=== PATIENT | male | born 1965 | race Caucasian/White ===

== ENCOUNTER 2019-06-23 11:12 | Outpatient (CLI) | payer MEDICARE, SELFPAY ==
[2019-06-23 11:43] LABS: Basophils Percent Auto 0.3 % (0.2-1.2); Eosinophils Absolute Auto 0.2 K/mm3 (0-0.3); Eosinophils Percent Auto 1.7 % (0-4.4); Hematocrit 46.2 % (42.0-52.0); Hemoglobin 15.9 g/dL (14.0-18.0); Immature Granulocyte Absolute 0.08 K/mm3 (0.00-0.031); Immature Granulocyte Percent A 0.7 % (0-0.5); Lymphocytes Absolute Auto 3.41 K/mm3 (0.9-3.2); Lymphocytes Percent Auto 29.7 % (18.3-44.2); Mean Corpuscular HGB Conc 34.4 g/dl (32-36); Mean Corpuscular Volume 90.1 fl (80-100); Mean Platelet Volume 10.2 fl (7.4-10.4); Monocytes Absolute Auto 0.6 K/mm3 (0.1-0.6); Monocytes Percent Auto 5.6 % (2.6-8.5); Neutrophils Absolute Auto 7.1 K/mm3 (1.3-6.7); Platelet Count Result 360 k/mm3 (150-375); Red Blood Count 5.13 M/mm3 (4.6-6.20); Red Cell Distribution Width 11.2 % (11.5-14.5); White Blood Count 11.5 K/mm3 (4.5-10.0)
[2019-06-23 11:52] LABS: Add Urine Microscopic? YES; Appearance Urine Cloudy (Clear); Bilirubin Urine 1+ (Negative); Blood Urine Negative (Negative); Color Urine Yellow (Yellow); Glucose Urine UA 3+ mg/dL (Negative); Hyaline Casts Urine 30-49 /lpf; Ketones Urine Trace mg/dL (Negative); Leukocyte Esterase Ur Trace LEU/UL (NEGATIVE); Mucus Urine Rare /lpf; Nitrate Urine Negative (Negative); Protein Urine 2+ mg/dL (Negative); Squamous Epithelial Cell Urine Few /hpf (Few)
[2019-06-23 11:56] LABS: Specific Grav Ur 1.032 (1.001-1.035)
[2019-06-23 11:58] LABS: Alanine Aminotransferase 20 U/L (4-50); Albumin Level 4.5 g/dL (3.5-5.1); Alkaline Phosphatase 105 U/L (38-126); Aspartate Amino Transferase 21 U/L (17-59); Bilirubin,Total 0.5 mg/dL (0.2-1.3); Blood Urea Nitrogen 26 mg/dL (9-20); Calcium 9.7 mg/dL (8.4-10.2); Carbon Dioxide 28 mmol/L (22-30); Chloride 96 mmol/L (98-107); Cholesterol 184 mg/dL (0-200); Estimated Glomerular Filt Rate > 60; Glucose 368 mg/dL (75-110); HDL Direct 27 mg/dL; Potassium 4.7 mmol/L (3.4-5.0); Sodium 138 mmol/L (137-145); Triglycerides 153 mg/dL (<150)
[2019-06-23 12:09] LABS: LDL Cholesterol Direct 137 mg/dL
[2019-06-23 12:27] LABS: Prostate Specific Antigen 1.8 ng/mL (< OR = 4.0)
[2019-06-23 13:12] LABS: Hemoglobin A1C 9.2 % (<5.7)
[2019-06-23 13:25] LABS: Vitamin D 25 Hydroxy 40.8 ng/mL
[2019-06-26 21:04] LABS: Vitamin D 1,25 (OH)2 Total 63 pg/mL (18-72); Vitamin D2 1,25 (OH)2 <8 pg/mL; Vitamin D3 1,25 (OH)2 63 pg/mL
== END 2019-06-23 11:13 | disposition home or self-care (01) ==
PROVIDERS: PCP Family Medicine; Referring Provider Physician Assistant; Visit Provider Physician Assistant
DX: Z12.5 Encounter for screening for malignant neoplasm of prostate (principal); E55.9 Vitamin D deficiency, unspecified; E11.65 Type 2 diabetes mellitus with hyperglycemia; Z79.4 Long term (current) use of insulin; I11.9 Hypertensive heart disease without heart failure; I25.2 Old myocardial infarction; I25.10 Atherosclerotic heart disease of native coronary artery without angina pectoris
CPT/HCPCS: 36415; 80053; 80061; 81001; 82306; 82652; 83036; 84153; 84443; 85025; G0103

== ENCOUNTER → 2020-08-12 06:51 | Outpatient (CLI) | payer MEDICARE, SELFPAY ==
[2020-08-12 18:11] LABS: SARS-CoV-2 RNA PCR Negative
== END ==
PROVIDERS: Nurse Practitioner Family; PCP Family Medicine; Visit Provider Family Medicine
DX: R05 Cough (principal); Z20.822 Contact with and (suspected) exposure to COVID-19
CPT/HCPCS: C9803; U0003; U0005

== ENCOUNTER 2021-07-21 10:43 | Outpatient (CLI) | payer MEDICARE, SELFPAY ==
[2021-07-21 11:23] LABS: Basophils Percent Auto 0.4 % (0.2-1.2); Eosinophils Absolute Auto 0.2 K/mm3 (0-0.3); Eosinophils Percent Auto 2.3 % (0-4.4); Hematocrit 38.4 % (42.0-52.0); Immature Granulocyte Absolute 0.03 K/mm3 (0.00-0.031); Immature Granulocyte Percent A 0.3 % (0-0.5); Lymphocytes Absolute Auto 3.28 K/mm3 (0.9-3.2); Lymphocytes Percent Auto 35.2 % (18.3-44.2); Mean Corpuscular HGB Conc 33.9 g/dl (32-36); Mean Corpuscular Hemoglobin 30.7 pg (26-34); Mean Corpuscular Volume 90.6 fl (80-100); Monocytes Absolute Auto 0.6 K/mm3 (0.1-0.6); Monocytes Percent Auto 5.9 % (2.6-8.5); Neutrophils Absolute Auto 5.2 K/mm3 (1.3-6.7); Neutrophils Percent Auto 55.9 % (45.5-73.1); Platelet Count Result 375 k/mm3 (150-375); Red Blood Count 4.24 M/mm3 (4.6-6.20); Red Cell Distribution Width 12.4 % (11.5-14.5); White Blood Count 9.3 K/mm3 (4.5-10.0)
[2021-07-21 11:38] LABS: Add Urine Microscopic? YES; Appearance Urine Cloudy (Clear); Bilirubin Urine Negative (Negative); Blood Urine Negative (Negative); Color Urine Yellow (Yellow); Glucose Urine UA 3+ mg/dL (Negative); Ketones Urine Negative (Negative); Leukocyte Esterase Ur 2+ LEU/UL (NEGATIVE); Mucus Urine Rare /lpf; Nitrate Urine Negative (Negative); Protein Urine Negative (Negative); Specific Grav Ur 1.018 (1.001-1.035); Squamous Epithelial Cell Urine Moderate /hpf (Few); Urobilinogen Urine Negative mg/dL (<2.0); WBC Urine 51-75 /hpf (0-3)
[2021-07-21 12:50] LABS: Hemoglobin A1C 10.8 % (<5.7)
[2021-07-21 12:53] LABS: Alanine Aminotransferase 20 U/L (4-50); Albumin Level 4.5 g/dL (3.5-5.1); Alkaline Phosphatase 84 U/L (38-126); Anion Gap 11 mmol/L (8-16); Aspartate Amino Transferase 24 U/L (17-59); Bilirubin,Total 0.3 mg/dL (0.2-1.3); Blood Urea Nitrogen 20 mg/dL (9-20); Calcium 9.9 mg/dL (8.4-10.2); Carbon Dioxide 28 mmol/L (22-30); Chloride 101 mmol/L (98-107); Cholesterol 149 mg/dL (0-200); Estimated Glomerular Filt Rate > 60; Glucose 156 mg/dL (65-110); HDL Direct 34 mg/dL; Potassium 4.8 mmol/L (3.4-5.0); Sodium 140 mmol/L (137-145); Triglycerides 115 mg/dL (<150)
[2021-07-21 13:05] LABS: LDL Cholesterol Direct 90 mg/dL
[2021-07-21 13:36] LABS: Prostate Specific Antigen 1.9 ng/mL (< OR = 4.0)
== END 2021-07-21 10:44 | disposition home or self-care (01) ==
PROVIDERS: PCP Family Medicine; Visit Provider Nurse Practitioner Family
DX: E11.65 Type 2 diabetes mellitus with hyperglycemia (principal); F31.9 Bipolar disorder, unspecified; I11.9 Hypertensive heart disease without heart failure; Z12.5 Encounter for screening for malignant neoplasm of prostate; Z79.4 Long term (current) use of insulin; R31.9 Hematuria, unspecified; E55.9 Vitamin D deficiency, unspecified; I25.10 Atherosclerotic heart disease of native coronary artery without angina pectoris; I25.2 Old myocardial infarction
CPT/HCPCS: 36415; 80053; 80061; 81001; 83036; 84153; 84443; 85025; G0103

== ENCOUNTER → 2021-08-26 00:04 | Outpatient (CLI) | payer MEDICARE, SELFPAY ==
[2021-08-26 16:46] LABS: SARS-CoV-2 RNA PCR Negative
== END ==
PROVIDERS: PCP Family Medicine; Visit Provider Internal Medicine Gastroenterology
DX: Z01.812 Encounter for preprocedural laboratory examination (principal); Z20.822 Contact with and (suspected) exposure to COVID-19
CPT/HCPCS: C9803; U0003; U0005

== ENCOUNTER 2022-10-19 12:40 | Outpatient (CLI) | payer MEDICARE, SELFPAY ==
--- NOTE | 2022-10-19 12:51 | ECHO_ITS ---
Patient Info Name: Antonio Solis Age: 56 years : 1965 Gender: Male Ht: 69 in Wt: 208 lbs BSA: 2.17 m2 BP: 137 / 74 mmHg Technical Quality: Fair Exam Date: 10/19/2022 1:00 PM Exam Location: [facility] Patient Status: Outpatient Admit Date: 10/19/2022 Staff Ordering Physician: Edwin Blanchard DO Digital Designer: Edyta Fan RDCS Attending Provider: Edwin Blanchard DO Referring Physician: Santo JIMENEZ; Exam Type: CA echo doppler color flow Study Info Indications I25.10 - Atherosclerotic heart disease of [place] coronary artery without angina pectoris Complete two-dimensional, color flow and Doppler transthoracic echocardiogram is performed. Summary 1. Complete two-dimensional, color flow and Doppler transthoracic echocardiogram is performed. 2. Left ventricular chamber dimension is mildly enlarged. 3. Left ventricular systolic function is normal, estimated at 55-60%. 4. The left ventricular diastolic function is grade I diastolic dysfunction. 5. E/e' 7 is not elevated. 6. Global longitudinal strain is abnormal at -15.1%. 7. Linear artifact in right ventricle suggestive of catheter(s), pacemaker lead(s), or ICD lead(s). 8. Linear artifact in the right atrium suggestive of catheter(s), pacemaker lead(s), or ICD lead(s). 9. No pulmonary hypertension, estimated pulmonary arterial systolic pressure is 28 mmHg. Left Ventricle E/e' 7 is not elevated. Global longitudinal strain is abnormal at -15.1%. Left ventricular chamber dimension is mildly enlarged. Left ventricular systolic function is normal, estimated at 55-60%. The left ventricular diastolic function is grade I diastolic dysfunction. Right Ventricle Right ventricular systolic function is normal and with normal TAPSE 2.6 cm. Linear artifact in right ventricle suggestive of catheter(s), pacemaker lead(s), or ICD lead(s). Right ventricular chamber dimension is normal. Left Atria Left atrial chamber dimension is normal. Right Atria Linear artifact in the right atrium suggestive of catheter(s), pacemaker lead(s), or ICD lead(s). Right atrial chamber dimension is normal. Aortic Valve The aortic valve is trileaflet. There is no aortic valve stenosis. There is no aortic valve regurgitation. Pulmonic Valve There is no pulmonic regurgitation. Mitral Valve There is no mitral valve stenosis. There is no mitral valve regurgitation. Tricuspid Valve There is no tricuspid valve regurgitation. No pulmonary hypertension, estimated pulmonary arterial systolic pressure is 28 mmHg. Pericardium/Pleural There is no pericardial effusion. Inferior Vena Cava Normal inferior vena cava with >50% collapse upon inspiration consistent with normal right atrial pressure, 5 mmHg. Aorta The aortic root size at the sinus of Valsalva is normal. Left Ventricular Outflow Tract Name Value Normal LVOT 2D LVOT Diameter 2.0 cm LVOT Doppler LVOT Peak Velocity 104 cm/s LVOT Peak Gradient 4 mmHg LVOT Mean Gradient 3 mmHg LVOT VTI 21 cm
[2022-10-19 13:46] LABS: Estimated Glomerular Filt Rate > 60
== END 2022-10-19 12:41 | disposition home or self-care (01) ==
PROVIDERS: PCP Family Medicine; Visit Provider Internal Medicine Cardiovascular Disease
DX: I25.10 Atherosclerotic heart disease of native coronary artery without angina pectoris (principal); I51.9 Heart disease, unspecified
CPT/HCPCS: 93306

== ENCOUNTER 2022-10-19 12:45 | Outpatient (CLI) | payer MEDICARE, SELFPAY ==
--- NOTE | ~2022-10-19 | CT_ITS ---
EXAMINATION: CTA neck DATE: 10/19/2022 14:01 INDICATION: Left hand paresthesias. TECHNIQUE: Computed tomographic angiography (CTA) of the neck was performed with 100 mL Omnipaque-350 intravenous contrast. Automated exposure control and iterative reconstruction technique were employe d. The dose-length product was 998.80 mGy-cm. Maximum intensity projection 3D-reconstructions were cr eated by the technologist on a separate workstation. COMPARISON: None. FINDINGS: Calcified left hilar lymph nodes are consistent with old granulomatous disease. There is a left chest pacer. There is a 2.4 cm subcutaneous mass in left posterior superior thorax, likely a agustin aceous cyst. There is cerumen in left external auditory canal. There is a right mastoid effusion. The re is extensive dental disease. There is severe cervical spondylosis. Right vertebral artery is domin ant. There is total occlusion of proximal left subclavian artery with reconstitution at the origin of thyrocervical trunk. There is total occlusion of proximal left vertebral artery with reconstitution in the mid cervical spine. There is moderate stenosis of intracranial left vertebral artery. Left ihsan tebral artery ends in posterior inferior cerebellar artery. There is plaque in the proximal internal carotid arteries. There is 26% stenosis of the proximal right internal carotid artery relative to nor mal distal artery lumen diameter (NASCET criteria). There is 37% stenosis of the proximal left internal consultant al carotid artery relative to normal distal artery lumen diameter. IMPRESSION: 1. 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 2. Total occlusion of proximal left vertebral artery with reconstitution in the mid cervical spine. M oderate stenosis of intracranial left vertebral artery, which ends in posterior inferior cerebellar a rtery. 3. 26% stenosis of the proximal right internal carotid artery relative to normal distal artery lumen diameter (NASCET criteria). 4. 37% stenosis of the proximal left internal carotid artery relative to normal distal artery lumen d iameter. 5. Extensive dental disease. 6. Severe cervical spondylosis. Reviewed, dictated and finalized at location A. IMPRESSION: 1. 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 2. Total occlusion of proximal left vertebral artery with reconstitution in the mid cervical spine. Moderate stenosis of intracranial left vertebral artery, w hich ends in posterior inferior cerebellar artery. 3. 26% stenosis of the proximal right internal carotid artery relative to kelsy l distal artery lumen diameter (NASCET criteria). 4. 37% stenosis of the proximal left internal carotid artery relative to normal distal artery lumen diameter. 5. Extensive dental disease. 6. Severe cervical spondylosis.
== END 2022-10-19 12:46 | disposition home or self-care (01) ==
PROVIDERS: PCP Family Medicine; Visit Provider Internal Medicine Cardiovascular Disease
DX: R20.2 Paresthesia of skin (principal); I70.92 Chronic total occlusion of artery of the extremities; I65.23 Occlusion and stenosis of bilateral carotid arteries; K08.9 Disorder of teeth and supporting structures, unspecified; M47.812 Spondylosis without myelopathy or radiculopathy, cervical region
CPT/HCPCS: 70498; 93306; Q9967

== ENCOUNTER 2022-10-25 13:37 | Outpatient (CLI) | payer MEDICARE, SELFPAY ==
[2022-10-25 15:48] LABS: Hemoglobin A1C 9.3 % (<5.7)
== END 2022-10-25 13:38 | disposition home or self-care (01) ==
PROVIDERS: PCP Family Medicine; Visit Provider Family Medicine
DX: E11.65 Type 2 diabetes mellitus with hyperglycemia (principal); Z79.4 Long term (current) use of insulin; I11.9 Hypertensive heart disease without heart failure; I25.10 Atherosclerotic heart disease of native coronary artery without angina pectoris; J44.9 Chronic obstructive pulmonary disease, unspecified; R33.9 Retention of urine, unspecified
CPT/HCPCS: 36415; 83036

== ENCOUNTER 2024-05-01 12:29 | Emergency (ER) | payer MEDICARE, SELFPAY ==
[2024-05-01] VITALS (36 sets, daily range): BP systolic 127–201; BP diastolic 82–106; PULSE 75–90; RESP 15–25; TEMP 36.8; O2SAT 93–100
--- NOTE | ~2024-05-01 | XR_ITS ---
EXAMINATION: XR chest 2V DATE: 05/01/2024 12:53 INDICATION: Left chest pain. TECHNIQUE: Frontal and lateral views of the chest were obtained. COMPARISON: Chest 2 views 08/16/2017 FINDINGS: There is no pneumonia, pleural effusion, or pneumothorax. The heart size is normal. There i s a left chest wall pacer with leads in the right atrium and right ventricle. IMPRESSION: 1. No acute cardiopulmonary disease. Reviewed, dictated and finalized at location A.
--- NOTE | ~2024-05-01 | CT_ITS ---
CTA chest PE protocol Ordering provider: Summer Bauman MD History: 58 years Male with . cp w/ elev dimer . Comparison: None. Technique: CT angiogram chest was performed following timed intravenous injection of contrast. Thin s lice axial images and reformatted coronal images were obtained. Three dimensional reformatted images of the chest were also obtained using a [employer] workstation. . Automated exposure control and iterati ve reconstruction technique were employed. The dose-length product was 609.96 mGy-cm. 500 mL Omnipaqu e 350 was given IV. Findings: PULMONARY ARTERIES: No pulmonary embolus. VISUALIZED THORACIC INLET: Normal. Left bipolar pacemaker is noted. MEDIASTINUM: Aorta/coronary arteries: Mild atheromatous disease. Heart/other: The heart is not enlarged. Lymph nodes: No mediastinal or hilar adenopathy. LUNGS: No pulmonary nodules or masses. No infiltrates or effusions. No pneumothorax. VISUALIZED UPPER ABDOMEN: Severe narrowing of the origin of the celiac artery. Atherosclerotic change s also seen in the proximal superior mesenteric artery. Otherwise, the visualized upper abdomen is no rmal. MUSCULOSKELETAL: Soft tissues: The superficial soft tissues are normal. Bones: Age appropriate degenerative changes of the spine. IMPRESSION: 1. No pulmonary embolism. 2. No acute cardiopulmonary pathology. 3. Narrowing at the origin of the celiac artery and atherosclerotic changes in the superior mesenter ic artery. Further evaluation advised. Reviewed, dictated and finalized at location A. IMPRESSION: 1. No pulmonary embolism. 2. No acute cardiopulmonary pathology. 3. Narrowing at the origin of the celiac artery and atherosclerotic changes in the superior mesenteric artery. Further evaluation advised.
--- NOTE | 2024-05-01 12:31 | ECG_ITS ---
Test Date: 2024-05-01 12:35:55 Measurements Intervals [place] Rate: 90 P: 64 IN: 168 QRS: 57 QRSD: 86 T: 71 QT: 344 QTc: 422 Interpretive Statements SINUS RHYTHM No previous ECG available for comparison Electronically Signed On 05-01-2024 15:38:35 CDT by Belle Yang M.D.
[2024-05-01 12:47] LABS: Basophils Absolute Auto 0.1 K/mm3 (0.0-0.1); Basophils Percent Auto 0.7 % (0.2-1.2); Eosinophils Absolute Auto 0.3 K/mm3 (0-0.3); Eosinophils Percent Auto 2.4 % (0-4.4); Hematocrit 46.2 % (42.0-52.0); Hemoglobin 15.5 g/dL (14.0-18.0); Immature Granulocyte Absolute 0.02 K/mm3 (0.00-0.031); Immature Granulocyte Percent A 0.2 % (0-0.5); Lymphocytes Absolute Auto 2.68 K/mm3 (0.9-3.2); Mean Corpuscular HGB Conc 33.5 g/dl (32-36); Mean Corpuscular Volume 92.4 fl (80-100); Mean Platelet Volume 9.6 fl (7.4-10.4); Monocytes Absolute Auto 0.5 K/mm3 (0.1-0.6); Monocytes Percent Auto 4.7 % (2.6-8.5); Neutrophils Absolute Auto 6.8 K/mm3 (1.3-6.7); Platelet Count Result 361 k/mm3 (150-375); Red Cell Distribution Width 12.2 % (11.5-14.5); White Blood Count 10.3 K/mm3 (4.5-10.0)
[2024-05-01 13:01] LABS: INR 0.9; Partial Thromboplastin Time 28.2 Seconds (22.3-36.8); Prothrombin Time 12.4 Seconds (11.1-14.7)
[2024-05-01 13:06] LABS: Alanine Aminotransferase 35 U/L (6-50); Albumin Level 4.6 g/dL (3.5-5.1); Alkaline Phosphatase 96 U/L (38-126); Anion Gap 10 mmol/L (4-12); Aspartate Amino Transferase 36 U/L (17-59); Bilirubin,Total 0.3 mg/dL (0.2-1.3); Blood Urea Nitrogen 14 mg/dL (9-20); Calcium 9.6 mg/dL (8.4-10.2); Carbon Dioxide 29 mmol/L (22-30); Chloride 102 mmol/L (98-107); Estimated CRCL calculation 125 ml/min; Estimated Glomerular Filt Rate > 60; Glucose 195 mg/dL (65-110); Lipase 60 U/L (23-300); Potassium 4.6 mmol/L (3.4-5.0); Sodium 141 mmol/L (137-145)
[2024-05-01 13:18] LABS: Troponin I < 0.012 ng/mL (0.000-0.034)
--- NOTE | 2024-05-01 13:54 | PC.NURSE ---
patient states he took 80 mg aspirin this morning
[2024-05-01] MEDS: ASPIRIN 81 MG CHEWABLE TABLET 324 MG PO (14:14)
--- NOTE | 2024-05-01 14:50 | ED.CHESTPAIN ---
HPI - Chest Pain General Chief Complaint: Chest Pain Stated Complaint: chest pain x3d Time Seen by Provider: 05/01/24 14:34 Source: patient Mode of arrival: ambulatory Limitations: no limitations History of Present Illness HPI narrative: Patient presents with intermittent left sided chest pain of 3 days duration. He states he has a known history of blockages but is not a surgical candidate/no intervention has been performed given his diabetes mellitus. He had a cardiac catheterization approximately 1 year ago. 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 Subjective lower extremity edema. His symptoms are episodic, primarily occuring with exercise/heavy lifting. He states he was warned about this and advised to not do this but it's all I know. History of VT in 2012 w/o stent placement. He experiences constant shortness of breath attributed to his smoking (1 PPD) as well as the fact that he has been out of his nitroglycerin which he usually uses for chest pain. He is also out of his atorvastatin. Patient has an upcoming appointment with his PCP Dr Almazan on 05/07. Episodes last 3-4 minutes and are occasionally associated with diaphoresis. No nausea/vomting. Describes it as a pulling sensation. He had a pacemaker placed by Dr Queen, statement clerks supervisor in [place]. Has been occasionally dizzy with episodes. Takes 81mg aspiring but no other anticoagulation. No cough, fever. No prior TIA/CVA. Hx of HTN and HLD. Related Data Allergies Allergy/AdvReac Type Severity Reaction Status Date / Time Penicillins Allergy Unknown Swelling Verified 11/07/22 13:15 [facility] Past Medical History Medical History CAD (coronary artery disease) COPD (chronic obstructive pulmonary disease) Hyperlipidemia Hypertension Insulin dependent diabetes mellitus Old VT (myocardial infarction) 2012; no stents Pacemaker Dr Queen, [place] PAD (peripheral artery disease) occluded L subclavian, L vertebral both w/ collateral flow Renal lithiasis Smoking Tobacco use Family History Family History Sibling Diabetes mellitus Mother Family history of cardiovascular disease Social History Social History Smoking packs per day: 1.5 Smoking cigarettes per day: 30.0 Years smoked: 51 Smoking pack-years: 76.50 Smoking status: Current every day smoker Tobacco type: cigarettes Second hand tobacco smoke exposure: Yes Alcohol intake: former Drinks per week: 6 Substance use: never Substance use type: does not use Living arrangements: alone Occupation/Education: unemployed Gender identity (if verbalized by the patient): Male Spiritual care concerns: No Exam Narrative: GENERAL: Well-nourished, and in no acute distress. HEAD: Normocephalic, atraumatic. EYES: Non injected, non icteric ENT: Nares clear, no rhinorrhea or epistaxis. NECK: Supple. CHEST: Speaking in full sentences. No respiratory distress. Lungs clear. HEART: Regular rate and rhythm. . ABDOMEN: Soft, nondistended. EXTREMITIES: Normal range of motion. No lower extremity edema bilaterally on exam. SKIN: Warm, dry, no rash. NEURO: No focal deficits. Alert and oriented x3. PSYCH: Normal mood and affect. Course Vital Signs Vital signs: Vital Signs Temperature 98.2 F 05/01/24 12:41 Pulse Rate 89 05/01/24 12:41 Respiratory Rate 20 05/01/24 12:41 Blood Pressure 128/88 05/01/24 12:41 Pulse Oximetry 100 05/01/24 12:41 Oxygen Delivery Room Air 05/01/24 12:41 Temperature 98.2 F 05/01/24 19:27 Pulse Rate 86 05/01/24 19:27 Respiratory Rate 19 05/01/24 19:27 Blood Pressure 147/82 H 05/01/24 19:27 Pulse Oximetry 95 05/01/24 19:27 Oxygen Delivery Room Air 05/01/24 13:52 MDM - Chest Pain MDM Narrative Medical decision making narrative: Patient presents with intermittent episodic left sided chest pain of 3 days duration, occurring with exercise/heavy lifting. Cardiac history. In the ED, he is afebrile with VS within normal limits. HEART SCORE History 2 highly suspicious 1 moderately suspicious 0 slightly suspicious History score [address] depression/elevation not due to LBBB, LVH, or digoxin [address] depression but LBBB, LVH, nonspecific repolarization changes 0 normal ECG score 0 Age 2 >/= 65 1 45-64 0 <45 Age score 1 Risk factors (HTN, hypercholesterolemia, DM, obesity with BMI >30, current smoker or cessation </=3mo), positive fam hx with parent or sibling with CVD before age 65, atherosclerotic disease (prior VT, PCI/CABG, CVA/TIA, or peripheral arterial disease) 2 >/= 3 risk factors or history of atherosclerotic dz 1 - 1-2 risk factors 0 no known risk factors Risk factor score 2 Initial Troponin 2 >3 times normal limit 1 1-3 times normal limit 0 less than or equal to normal limit Troponin score 0 Total HEART Score 3. Patient's symptoms sound like stable angina. Patient's D-dimer is elevated in cannot be age adjusted. Will proceed with CT imaging. Study is ordered but patient is initially adamant he would like to leave given he has been waiting for so long. Discussed with patient and offered to give patient insulin and food. Explained because the delay and the rationale for the order for the next phase of his workup. Discharge and AMA paperwork drawn up given patient initially states he would still like to proceed with leaving. However, I am then informed that patient had gone to the CT scan. Negative for PE. Discharged in stable condition and advised to keep his follow up appointment on 05/[address] Almazan. Provided short course of a refill of his atorvastain and NTG SL. Differential Diagnosis Differential diagnosis: Likely pneumothorax, stable angina, unstable angina pectoris, atypical chest pain, st elevation myocardial infarction, chest pain, biliary colic and other (COPD exacerbation; musculoskeletal; PE; pneumonia) Lab Data Attestation: I reviewed the patient's lab results. Lab results narrative: mild leukocytosis Hyperglycemia without anion gap acidosis 05/01/24 12:39 05/01/24 12:39 Labs: Lab Results 05/01/24 05/01/24 Range/Units 12:39 15:38 WBC 10.3 H (4.5-10.0) K/mm3 RBC 5.00 (4.6-6.20) M/mm3 Hgb 15.5 (14.0-18.0) g/dL Hct 46.2 (42.0-52.0) % MCV 92.4 (80-100) fl MCH 31.0 (26-34) pg MCHC 33.5 (32-36) g/dl RDW 12.2 (11.5-14.5) % Plt Count 361 (150-375) k/mm3 MPV 9.6 (7.4-10.4) fl Immature Gran % (Auto) 0.2 (0-0.5) % Neut % (Auto) 66.0 (45.5-73.1) % Lymph % (Auto) 26.0 (18.3-44.2) % [place] % (Auto) 4.7 (2.6-8.5) % Eos % (Auto) 2.4 (0-4.4) % Baso % (Auto) 0.7 (0.2-1.2) % Lymph # (Auto) 2.68 (0.9-3.2) K/mm3 [place] # (Auto) 0.5 (0.1-0.6) K/mm3 Eos # (Auto) 0.3 (0-0.3) K/mm3 Baso # (Auto) 0.1 (0.0-0.1) K/mm3 Abs Immat Gran (auto) 0.02 (0.00-0.031) K/mm3 Absolute Neuts (auto) 6.8 H (1.3-6.7) K/mm3 Absolute Nucleated RBC 0.000 (0.0-0.012) K/mm3 Nucleated RBC % 0.0 (0.0-0.2) % PT 12.4 (11.1-14.7) Seconds INR 0.9 APTT 28.2 (22.3-36.8) Seconds D-Dimer 1.79 H (<0.48) ug/mL Sodium 141 (137-145) mmol/L Potassium 4.6 (3.4-5.0) mmol/L Chloride 102 (98-107) mmol/L Carbon Dioxide 29 (22-30) mmol/L Anion Gap 10 (4-12) mmol/L BUN 14 D (9-20) mg/dL Creatinine 0.60 L (0.7-1.3) mg/dL Estim Creat Clear Calc 125 ml/min Estimated GFR > 60 (59 - ) Glucose 195 H (65-110) mg/dL Calcium 9.6 (8.4-10.2) mg/dL Total Bilirubin 0.3 (0.2-1.3) mg/dL AST 36 (17-59) U/L ALT 35 (6-50) U/L Alkaline Phosphatase 96 (38-126) U/L Troponin I < 0.012 < 0.012 (0.000-0.034) ng/mL NT-Pro-B Natriuret Pep 97 (19.9-100) pg/mL Total Protein 9.0 H (6.3-8.2) g/dL Albumin 4.6 (3.5-5.1) g/dL Lipase 60 (23-300) U/L Imaging Data Radiologist's impression: Impressions Chest CTA 05/01/24 19:00 IMPRESSION: 1. No pulmonary embolism. 2. No acute cardiopulmonary pathology. 3. Narrowing at the origin of the celiac artery and atherosclerotic changes in the superior mesenteric artery. Further evaluation advised. CXR IMPRESSION: 1. No acute cardiopulmonary disease. ECG Data EKG #1: Attestation: I personally reviewed and interpreted this ECG as follows: ECG completion date: 05/01/24 ECG completion time: 12:35 Interpretation: Normal sinus rhythm at a rate of 90 beats per minute. MT interval 168. QRS 86. QT/ QTC 344/394. Good R-wave progression across the precordial leads. Normal axis. No T-wave inversions. Normal ECG Discharge Plan Discharge Clinical Impression: Stable angina, Encounter for medication refill, Leukocytosis, Hyperglycemia due to diabetes mellitus, D-dimer, elevated Patient Disposition: Home, Self-Care Condition: Stable Instructions: Antibiotic Form, Angina (DC), How to Stop Smoking (ED), Diabetic Hyperglycemia (ED) Additional Instructions: a 7 day refill of your atorvastatin has been provided as a bridge until you see your primary care physician at the end of the month. Also providing refill of nitroglycerin. FOllow up with your primary care physician and statement clerks supervisor. Don't hestitate to return to the ED if any new/worsening symptoms. Prescriptions: New atorvastatin 80 mg tablet 80 mg PO DAILY Qty: 7 0RF nitroglycerin 0.4 mg tablet, sublingual 0.4 mg sublingual Q5M PRN (Reason: chest pain) Qty: 7 0RF Rx Instructions: do not exceed 3 doses per episode No Action alcohol swabs Pads, Medicated 1 pad TOPICAL .before fingersticks Qty: 200 3RF aspirin [Lamin Aspirin] 325 mg tablet 325 mg PO DAILY Qty: 90 2RF cholecalciferol (vitamin D3) [Vitamin D3] 2,000 unit tablet 2,000 unit PO DAILY Qty: 90 2RF metoclopramide HCl 5 mg tablet 5 mg PO .COMPLEX Qty: 90 2RF Rx Instructions: 5 mg PO take 1 tab by mouth 3 times a day 30 minutes before meals; nitroglycerin 0.4 mg tablet, sublingual 0.4 mg SUBLINGUAL Q5M PRN (Reason: chest pain) Qty: 30 0RF hydroxyzine HCl 10 mg tablet 10 mg PO ONCE Qty: 90 1RF docusate sodium [Colace] 100 mg capsule 100 mg PO BID Qty: 180 1RF glipizide 5 mg tablet extended release 24 hr 5 mg PO .AM Qty: 90 0RF varenicline [Chantix Starting Month Box] 0.5 mg (11)- 1 mg (42) tablets,dose pack See Rx Instructions PO PER PKG DIR Qty: 53 0RF Rx Instructions: PO PER PKG DIR (DME) blood-glucose meter [Accu-Chek Guide Me Glucose Mtr] Misc See Rx Instructions .Route Qty: 1 0RF Rx Instructions: As directed Trelegy Ellipta 100-62.5-25 mcg blister with device See Rx Instructions .ROUTE .COMPLEX Qty: 180 1RF Dose Instruction: INHALE 1 PUFF EVERY DAY Rx Instructions: INHALE 1 PUFF EVERY DAY lancets [Accu-Chek Softclix Lancets] Misc See Rx Instructions .ROUTE .COMPLEX Qty: 100 3RF Dose Instruction: CHECK BLOOD SUGAR ONE TIME DAILY Rx Instructions: CHECK BLOOD SUGAR ONE TIME DAILY alcohol swabs [BD Alcohol Swabs] Pads, Medicated See Rx Instructions .ROUTE .COMPLEX Qty: 100 4RF Dose Instruction: USE TOPICALLY EVERY DAY Rx Instructions: USE TOPICALLY EVERY DAY (DME) pen needle, diabetic [BD Ultra-Fine Maru Pen Needle] 32 gauge x 5/32 needle See Rx Instructions .ROUTE .MEDSUPPLY Qty: 200 11RF Rx Instructions: inject qac qhs insulin aspart U-100 [Novolog FlexPen U-100 Insulin] 100 unit/mL (3 mL) insulin pen See Rx Instructions subcut .qac Qty: 15 5RF Rx Instructions: 8 u sq qac plus sliding scale subcut .qac insulin glargine [Lantus Solostar U-100 Insulin] 100 unit/mL (3 mL) insulin pen 30 unit subcut DAILY Qty: 15 5RF metformin 500 mg tablet extended release 24 hr 500 mg PO .COMPLEX Qty: 360 1RF Rx Instructions: 500 mg PO take 4 tabs by mouth daily with evening meal Accu-Chek Guide test strips Strip See Rx Instructions .ROUTE .COMPLEX Qty: 350 2RF Dose Instruction: CHECK BLOOD SUGAR FOUR TIMES DAILY DIRECTED Rx Instructions: CHECK BLOOD SUGAR FOUR TIMES DAILY DIRECTED albuterol sulfate 90 mcg/actuation HFA aerosol inhaler See Rx Instructions .ROUTE .COMPLEX Qty: 1 0RF Dose Instruction: INHALE 1 PUFF EVERY 4 HOURS NEEDED FOR SHORTNESS OF BREATH Rx Instructions: INHALE 1 PUFF EVERY 4 HOURS NEEDED FOR SHORTNESS OF BREATH atorvastatin 80 mg tablet See Rx Instructions .ROUTE .COMPLEX Qty: 90 2RF Dose Instruction: TAKE 1 TABLET EVERY DAY Rx Instructions: TAKE 1 TABLET EVERY DAY potassium chloride 20 mEq tablet,ER particles/crystals See Rx Instructions .ROUTE .COMPLEX Qty: 90 2RF Dose Instruction: TAKE 1 TABLET EVERY DAY Rx Instructions: TAKE 1 TABLET EVERY DAY omeprazole 40 mg capsule,delayed release(DR/EC) See Rx Instructions .ROUTE .COMPLEX Qty: 90 2RF Dose Instruction: TAKE 1 CAPSULE BY MOUTH DAILY Rx Instructions: TAKE 1 CAPSULE BY MOUTH DAILY sotalol 80 mg tablet See Rx Instructions .ROUTE .COMPLEX Qty: 180 2RF Dose Instruction: TAKE 1 TABLET TWICE DAILY Rx Instructions: TAKE 1 TABLET TWICE DAILY lisinopril 40 mg tablet See Rx Instructions .ROUTE .COMPLEX Qty: 90 2RF Dose Instruction: TAKE 1 TABLET EVERY DAY Rx Instructions: TAKE 1 TABLET EVERY DAY fenofibrate 160 mg tablet See Rx Instructions .ROUTE .COMPLEX Qty: 90 2RF Dose Instruction: TAKE 1 TABLET EVERY DAY Rx Instructions: TAKE 1 TABLET EVERY DAY furosemide 40 mg tablet See Rx Instructions .ROUTE .COMPLEX Qty: 90 2RF Dose Instruction: TAKE 1 TABLET EVERY DAY Rx Instructions: TAKE 1 TABLET EVERY DAY varenicline [Chantix Continuing Month Box] 1 mg tablet 1 mg PO BID Qty: 180 0RF Other Ambulatory Orders: CTA chest PE protocol (Routine) Timeframe: [id number] Location: Determined by Patient Ordered By: Summer Bauman Follow-up/Referrals: Avery Almazan MD [Primary Care Provider] - Stand Alone Forms: Work/School Release IP Time of Disposition: 18:05
--- NOTE | 2024-05-01 15:29 | ECG_ITS ---
Test Date: 2024-05-01 15:45:56 Measurements Intervals [place] Rate: 76 P: 9 IA: 160 QRS: 58 QRSD: 94 T: 64 QT: 380 QTc: 429 Interpretive Statements SINUS RHYTHM ABNORMAL ECG Compared to ECG 05/01/2024 12:35:55 No significant changes Electronically Signed On 05-02-2024 13:07:23 CDT by Ventura Maldonado M.D.
[2024-05-01 15:43] LABS: NT Pro B Type Natriuretic Pept 97 pg/mL (19.9-100)
[2024-05-01 16:05] LABS: D Dimer 1.79 ug/mL (<0.48); Troponin I < 0.012 ng/mL (0.000-0.034)
== END 2024-05-01 19:30 | disposition home or self-care (01) ==
PROVIDERS: Emergency Provider Student in an Organized Health Care Education/Training Program; PCP Family Medicine
DX: I25.118 Atherosclerotic heart disease of native coronary artery with other forms of angina pectoris (principal); E11.65 Type 2 diabetes mellitus with hyperglycemia; D72.829 Elevated white blood cell count, unspecified; R79.1 Abnormal coagulation profile; Z76.0 Encounter for issue of repeat prescription; R06.02 Shortness of breath; I10 Essential (primary) hypertension; I25.2 Old myocardial infarction; J44.9 Chronic obstructive pulmonary disease, unspecified; E78.5 Hyperlipidemia, unspecified; E11.51 Type 2 diabetes mellitus with diabetic peripheral angiopathy without gangrene; I73.9 Peripheral vascular disease, unspecified; F17.210 Nicotine dependence, cigarettes, uncomplicated; Z95.0 Presence of cardiac pacemaker; Z79.82 Long term (current) use of aspirin; Z79.4 Long term (current) use of insulin; Z79.84 Long term (current) use of oral hypoglycemic drugs; Z79.899 Other long term (current) drug therapy; R94.31 Abnormal electrocardiogram [ECG] [EKG]
CPT/HCPCS: 36415; 71046; 71275; 80053; 83690; 83880; 84484; 85025; 85380; 85610; 85730; 93005; 99284; A9270; Q9967

== ENCOUNTER 2024-06-08 11:31 | Outpatient (CLI) | payer MEDICARE, SELFPAY ==
[2024-06-08 12:19] LABS: Hematocrit 40.3 % (42.0-52.0); Hemoglobin 13.4 g/dL (14.0-18.0); Mean Corpuscular HGB Conc 33.3 g/dl (32-36); Mean Corpuscular Hemoglobin 30.6 pg (26-34); Mean Platelet Volume 10.1 fl (7.4-10.4); Platelet Count Result 319 k/mm3 (150-375); Red Blood Count 4.38 M/mm3 (4.6-6.20)
[2024-06-08 12:30] LABS: Alanine Aminotransferase 35 U/L (6-50); Albumin Level 4.3 g/dL (3.5-5.1); Alkaline Phosphatase 68 U/L (38-126); Anion Gap 6 mmol/L (4-12); Aspartate Amino Transferase 35 U/L (17-59); Bilirubin,Total 0.6 mg/dL (0.2-1.3); Blood Urea Nitrogen 25 mg/dL (9-20); Calcium 9.5 mg/dL (8.4-10.2); Carbon Dioxide 32 mmol/L (22-30); Chloride 101 mmol/L (98-107); Cholesterol 167 mg/dL (0-200); Estimated Glomerular Filt Rate > 60; Glucose 277 mg/dL (65-110); HDL Direct 43 mg/dL; Potassium 4.3 mmol/L (3.4-5.0); Sodium 139 mmol/L (137-145); Triglycerides 119 mg/dL (<150)
[2024-06-08 12:36] LABS: Hemoglobin A1C 8.8 % (<5.7)
[2024-06-08 12:49] LABS: LDL Cholesterol Direct 101 mg/dL
[2024-06-08 12:53] LABS: Creatinine Urine 77.9 mg/dL
[2024-06-08 12:57] LABS: MALB Creatinine Ratio 20.8 mg/g (0-30); Microalbumin Urine Random 16.2 mg/L (0-16.7)
[2024-06-08 13:07] LABS: Vitamin D 25 Hydroxy 49.1 ng/mL
[2024-06-08 13:08] LABS: Prostate Specific Antigen 2.2 ng/mL (< OR = 4.0)
== END 2024-06-08 11:32 | disposition home or self-care (01) ==
PROVIDERS: PCP Family Medicine; Visit Provider Physician Assistant
DX: I73.9 Peripheral vascular disease, unspecified (principal); I25.10 Atherosclerotic heart disease of native coronary artery without angina pectoris; E11.65 Type 2 diabetes mellitus with hyperglycemia; E55.9 Vitamin D deficiency, unspecified; F32.9 Major depressive disorder, single episode, unspecified; E11.9 Type 2 diabetes mellitus without complications; J44.9 Chronic obstructive pulmonary disease, unspecified; D72.829 Elevated white blood cell count, unspecified; Z79.4 Long term (current) use of insulin; Z12.5 Encounter for screening for malignant neoplasm of prostate
CPT/HCPCS: 36415; 80053; 80061; 82043; 82306; 83036; 84153; 84443; 85027; G0103

== ENCOUNTER 2024-06-10 01:33 | Day surgery (SDC) | payer MEDICARE, MEDICAID, SELFPAY ==
[2024-06-09 14:44] VITALS: BMI 30.2
[2024-06-10 08:37] VITALS: BP 104/69; PULSE 101; RESP 24; TEMP 36.9; O2SAT 97; BMI 29.9
[2024-06-10 08:53] LABS: Basophils Absolute Auto 0.1 K/mm3 (0.0-0.1); Basophils Percent Auto 0.7 % (0.2-1.2); Eosinophils Absolute Auto 0.4 K/mm3 (0-0.3); Eosinophils Percent Auto 4.6 % (0-4.4); Hematocrit 40.6 % (42.0-52.0); Hemoglobin 13.8 g/dL (14.0-18.0); Immature Granulocyte Absolute 0.03 K/mm3 (0.00-0.031); Immature Granulocyte Percent A 0.4 % (0-0.5); Lymphocytes Absolute Auto 2.31 K/mm3 (0.9-3.2); Lymphocytes Percent Auto 30.2 % (18.3-44.2); Mean Corpuscular Volume 91.2 fl (80-100); Mean Platelet Volume 9.8 fl (7.4-10.4); Monocytes Absolute Auto 0.5 K/mm3 (0.1-0.6); Monocytes Percent Auto 7.1 % (2.6-8.5); Neutrophils Absolute Auto 4.4 K/mm3 (1.3-6.7); Platelet Count Result 316 k/mm3 (150-375); Red Blood Count 4.45 M/mm3 (4.6-6.20); White Blood Count 7.6 K/mm3 (4.5-10.0)
[2024-06-10 09:18] LABS: Anion Gap 5 mmol/L (4-12); Blood Urea Nitrogen 17 mg/dL (9-20); Calcium 9.5 mg/dL (8.4-10.2); Carbon Dioxide 32 mmol/L (22-30); Chloride 102 mmol/L (98-107); Estimated CRCL calculation 86 ml/min; Estimated Glomerular Filt Rate > 60; Glucose 216 mg/dL (65-110); Potassium 4.2 mmol/L (3.4-5.0); Sodium 139 mmol/L (137-145)
[2024-06-10 09:37] LABS: INR 0.9; Prothrombin Time 13.1 Seconds (11.1-14.7)
--- NOTE | 2024-06-10 10:47 | P.SEDATION_ITS ---
Moderate Sedation Note-Pt Data Patient Data Diagnosis: chronically implanted pacemaker at [facility] Present Complaint: no complaint Procedure to be performed/Plan: pacemaker generator change Allergies Allergy/AdvReac Type Severity Reaction Status Date / Time Penicillins Allergy Unknown Swelling Verified 06/10/24 08:33 Home Medications Medication Instructions Recorded Confirmed Type alcohol swabs 1 pad topical .before fingersticks 05/28/19 06/09/24 Rx #200 ea aspirin 325 mg tablet (Lamin 325 mg PO DAILY #90 tabs 05/28/19 06/09/24 Rx Aspirin) nitroglycerin 0.4 mg sublingual 0.4 mg sublingual Q5M PRN chest 05/28/19 Rx tablet pain #30 tabs blood-glucose meter (Accu-Chek #1 ea 12/27/20 05/15/24 Rx Guide Me Glucose Meter) lancets (Accu-Chek Softclix See Rx Instructions .Route 11/16/21 06/09/24 Rx Lancets) .COMPLEX #100 ea pen needle, diabetic 32 gauge x #200 ea 01/29/22 05/15/24 Rx 5/32 (BD Ultra-Fine Maru Pen Needle) insulin aspart U-100 100 unit/mL See Rx Instructions subcut .qac 07/13/22 06/09/24 Rx (3 mL) subcutaneous pen (Novolog #15 mL FlexPen U-100 Insulin aspart) blood sugar diagnostic (Accu-Chek See Rx Instructions .Route 09/10/22 06/09/24 Rx Guide test strips) .COMPLEX #350 strips albuterol sulfate 90 mcg/actuation 1 puff inhalation Q4H PRN 06/09/24 06/09/24 History aerosol inhaler Shortness Of Breath atorvastatin 80 mg tablet 80 mg PO DAILY 06/09/24 06/09/24 History cholecalciferol (vitamin D3) 50 1,000 unit PO DAILY 06/09/24 06/09/24 History mcg (2,000 unit) tablet (Vitamin D3) cyanocobalamin (vitamin B-12) 1,000 mcg PO DAILY 06/09/24 06/09/24 History 1,000 mcg capsule fenofibrate 160 mg tablet 160 mg PO DAILY 06/09/24 06/09/24 History fluticasone fur. 100 mcg-umeclid 1 ea inhalation DAILY 06/09/24 06/09/24 History 62.5 mcg-vilant 25 mcg inhalat.powder (Trelegy Ellipta) furosemide 40 mg tablet 40 mg PO DAILY 06/09/24 06/09/24 History glipizide 5 mg tablet, extended 5 mg PO QAM 06/09/24 06/09/24 History release 24 hr hydroxyzine HCl 10 mg tablet 10 mg PO HS PRN nausea and vomiting 06/09/24 06/09/24 History insulin glargine 100 unit/mL (3 30 unit subcut HS 06/09/24 06/09/24 History mL) subcutaneous pen (Lantus Solostar U-100 Insulin) lisinopril 40 mg tablet 40 mg PO DAILY 06/09/24 06/09/24 History metformin 500 mg tablet,extended 1,000 mg PO BID 06/09/24 06/09/24 History release 24 hr omeprazole 40 mg capsule,delayed 40 mg PO DAILY 06/09/24 06/09/24 History release potassium chloride 20 mEq 20 meq PO DAILY 06/09/24 06/09/24 History tablet,extended release(part/cryst) sotalol 80 mg tablet 80 mg PO Q12H 06/09/24 06/09/24 History Sedation/Anesthesia: No previous sedation/anesthesia problems (including family history). [facility] Past Medical History Medical History CAD (coronary artery disease) COPD (chronic obstructive pulmonary disease) Hyperlipidemia Hypertension Insulin dependent diabetes mellitus [place] (myocardial infarction) 2012; no stents Pacemaker Dr [place], [place] PAD (peripheral artery disease) occluded L subclavian, L vertebral both w/ collateral flow Renal lithiasis Smoking Tobacco use Family History Family History (Reviewed 05/15/24 @ 13:23 by Lovely Martinez, [facility]) Sibling Diabetes mellitus Mother Family history of cardiovascular disease Social History Social History (Reviewed 05/15/24 @ 13:23 by Lovely Martinez [facility]) Smoking packs per day: 1 Smoking cigarettes per day: 20.0 Years smoked: 55 Smoking pack-years: 55.00 Smoking status: Current every day smoker Tobacco type: cigarettes Smokeless tobacco user: chewing tobacco Second hand tobacco smoke exposure: Yes Alcohol intake: former Drinks per week: 6 Substance use: never Substance use type: does not use Living arrangements: alone Occupation/Education: unemployed Gender identity (if verbalized by the patient): Male Spiritual care concerns: No Mod Sed Physical Exam Physical Exam Pre Procedural Exam: Normal: Appearance, Throat, Airway, Lungs, Heart Size, Heart Rate, Heart Rhythm, Neuro Exam and Extremities Hours since solid foods: 12 Hours since liquid intake: 12 Mallampati Classification: class II Internal Medicine - PN: Obj Da Vital Signs Vital Signs: Vital Signs - 24 hr 06/10/24 08:37 Temperature 36.9 C Pulse Rate 101 H Respiratory Rate 24 H Blood Pressure 104/69 Pulse Oximetry 97 Oxygen Delivery Room Air Labs 06/10/24 08:36 06/10/24 08:36 Labs: Laboratory Results - last 24 hr 06/10/24 08:36 WBC 7.6 RBC 4.45 L Hgb 13.8 L Hct 40.6 L MCV 91.2 MCH 31.0 MCHC 34.0 RDW 12.0 Plt Count 316 MPV 9.8 Immature Gran % (Auto) 0.4 Neut % (Auto) 57.0 Lymph % (Auto) 30.2 [place] % (Auto) 7.1 Eos % (Auto) 4.6 H Baso % (Auto) 0.7 Lymph # (Auto) 2.31 [place] # (Auto) 0.5 Eos # (Auto) 0.4 H Baso # (Auto) 0.1 Abs Immat Gran (auto) 0.03 Absolute Neuts (auto) 4.4 Absolute Nucleated RBC 0.000 Nucleated RBC % 0.0 PT 13.1 INR 0.9 Sodium 139 Potassium 4.2 Chloride 102 Carbon Dioxide 32 H Anion Gap 5 BUN 17 Creatinine 0.90 Estim Creat Clear Calc 86 Estimated GFR > 60 Glucose 216 H Calcium 9.5 ASA Classification/Sedation ASA Classification/Sedation ASA Class: II Emergent: No Risks: Risks, benefits and alternatives explained and patient/family accepted plan for sedation. Patient re-evaluated immediately prior to sedation.
--- NOTE | 2024-06-10 11:38 | WPDCARDPROC ---
Cardiac Cath Procedure Note Date of procedure:: 06/10/24 Performing physician:: Antonio Alas MD Indication:: permanently implanted pacemaker at [facility] Brief clinical history:: this is a 58-year-old man who underwent pacemaker implantation at another institution in 2012. The device is at [facility] and he has been referred and admitted today for elective generator change. He is not pacemaker dependent. Procedure Procedure performed:: Explantation of depleted pacemaker pulse generator implantation of Medtronic dual-chamber pulse generator Sedation/Medication given:: fentanyl 50 mg Versed 2 mg case start time 11:05 a.m. case end time 11:30 a.m. sedation provided by Meryl Gonzales RN, trained observer Access site:: chronically implanted pocket in the left subclavian fossa Estimated blood loss:: minimal Procedure note:: patient was brought to the cardiac catheterization lab in the postabsorptive state the left anterior chest wall over the chronically implanted pacemaker device was cleaned and draped in a sterile fashion. Following this 20 cc of 1% lidocaine was infiltrated over the pocket. Plasma blade was used to create an incision and to dissect the subcutaneous tissue as well as to provide electrocautery for hemostasis. Following this the fibrous capsule was encountered and this was then opened using the plasma blade and the Metzenbaum scissors. The pacemaker generator in the attached leads were then removed from the pocket and were visually unremarkable in appearance. The pacemaker leads were disconnected from the depleted generator using the torque wrench and connected to the new generator using the same torque wrench. Antibiotic infused saline was then used to irrigate the pocket. The new generator in the chronically implanted leads were placed back into the pocket which was then closed in layers using 3-0 Vicryl for the subcutaneous tissue and 4-0 Vicryl in a running subcuticular fashion for the skin. The wound was dressed with an Aquacel dressing and a pressure dressing was placed as there was some cutaneous oozing at the end of the procedure. Postop antibiotics were ordered and the patient will be discharged for follow-up in the office for dressing removal next week. Findings:: The explanted device is a Medtronic dual-chamber pacemaker model A2DR01 serial number [id number]. origin implanted November 28, 2012 the new pacemaker generator Medtronic dual-chamber pacemaker model [id number] simple [id number]. device is programmed in the DDD mode lower rate limit 60 upper rate limit 130 av delay 180/150 milliseconds. The atrial lead is a Medtronic bipolar lead model [id number] Serial number [id number]. P waves are sensed at 2 point mV threshold 0.75 volts at 0 point millisecond impedance 361 Ohms. Ventricular lead is a Medtronic bipolar lead model [id number]. R-waves sensed at 19.5 threshold 0.5 volts 0.4 milliseconds impedance 494 Ohms. Conclusion:: 1. successful uncomplicated explantation of depleted dual-chamber pulse generator 2. successful uncomplicated implantation permanent Medtronic dual-chamber pulse generator Antonio Alas MD [facility]
[2024-06-10 11:45] VITALS: BP 103/92; PULSE 84; RESP 22; O2SAT 93
[2024-06-10 12:00] VITALS: BP 131/80; PULSE 83; RESP 23; O2SAT 94
[2024-06-10 12:14] VITALS: BP 131/80; PULSE 82; RESP 22; O2SAT 95
[2024-06-10 12:30] VITALS: BP 148/84; PULSE 109; RESP 19; O2SAT 95
[2024-06-10 12:45] VITALS: BP 154/90; PULSE 88; RESP 26; O2SAT 96
== END 2024-06-10 12:48 | disposition home or self-care (01) ==
PROVIDERS: PCP Family Medicine; Visit Provider Specialist
PROC: 0JPT0PZ Removal of Cardiac Rhythm Related Device from Trunk Subcutaneous Tissue and Fascia, Open Approach (ICD-10-PCS; CPT 33228; principal; 2024-06-10 10:30)
DX: Z45.010 Encounter for checking and testing of cardiac pacemaker pulse generator [battery] (principal); I10 Essential (primary) hypertension; I25.10 Atherosclerotic heart disease of native coronary artery without angina pectoris; I25.2 Old myocardial infarction; J44.9 Chronic obstructive pulmonary disease, unspecified; E78.5 Hyperlipidemia, unspecified; E11.51 Type 2 diabetes mellitus with diabetic peripheral angiopathy without gangrene; Z79.51 Long term (current) use of inhaled steroids; Z79.4 Long term (current) use of insulin; Z79.84 Long term (current) use of oral hypoglycemic drugs; Z79.82 Long term (current) use of aspirin; F17.210 Nicotine dependence, cigarettes, uncomplicated; F17.220 Nicotine dependence, chewing tobacco, uncomplicated
CPT/HCPCS: 33228; 36415; 80048; 85025; 85610; C1785; J2003; J2250; J3010; J3370; J7040

== ENCOUNTER 2024-10-14 00:11 | Day surgery (SDC) | payer MEDICARE, SELFPAY ==
[2024-10-13 09:23] VITALS: BMI 31.1
--- OUTSIDE RECORDS SUMMARY | 2024-10-14 00:13 | XMS_ITS | Clinical Summary ---
Author Organization [facility] al Address [address] [place] [address] Care Team Providers Care Deckhand Engineer Name Role Phone Avery Almazan MD Primary Care Provider Miscellaneous, Not In File Unavailable Unava ilable Allergies Active Allergy Reactions Criticality Noted Date Comments Penicillins Hives,Swelling,Rash Medium 09/13/2017 Medications sotalol (BETAPACE) 80 mg tablet Take 1 tablet (80 mg total) by mouth 2 (two) times a day Active nitroglycerin (NITROSTAT) 0.[address] 1 tablet (0.4 mg total) under the tongue every 5 (five) minutes as needed for chest pain Active albuterol sulfate 90 mcg/actuation aerosol powdr breath activatedIndicat ions:Chronic Obstructive Pulmonary Disease Inhale 2 puffs every 4 (four) hours as needed Active tiotropium (SPIRIVA) 18 mcg per inhalation capsuleIndicatio ns:Bronchospasm Prevention with COPD Place 1 capsule into inhaler and inhale every morning Active citalopram (CeleXA) 40 mg tabletIndication s:Anxiety with Depression Take 1 tablet (40 mg total) by mouth every morning Active atorvastatin (LIPITOR) 80 mg tabletIndication s:hyperlipidemia Take 1 tablet (80 mg total) by mouth every morning Active cholecalciferol (VITAMIN D-3) 1,000 unit Take 1 tablet/capsule (1,000 Units total) by mouth daily Active fenofibrate (TRIGLIDE) 160 mg tabletIndication s:hyperlipidemia Take 1 tablet (160 mg total) by mouth every morning Active hydrOXYzine (ATARAX) 10 mg tablet Take 1 tablet (10 mg total) by mouth nightly Active furosemide (LASIX) 40 mg tabletIndication s:Edema Take 1 tablet (40 mg total) by mouth every morning Active potassium chloride ER (potassium chloride ER) 20 mEq CR tabletIndication s:supplement Take 1 tablet (20 mEq total) by mouth every morning Active metoclopramide (REGLAN) 5 mg tablet Take 1 tablet (5 mg total) by mouth 3 (three) times a day Active aspirin 325 mg tablet Do not take Aspirin until 03/30/20. 0 Active acetaminophen (TYLENOL) 325 mg tabletIndication s:Pain Take 2 tablets (650 mg total) by mouth every 4 (four) hours as needed for pain 0 Active Additional Information Patient not taking.Reported on 07/22/2024 docusate sodium (COLACE) 100 mg capsuleIndicatio ns:constipation, Stool Softener Take 1 capsule (100 mg total) by mouth 2 (two) times a day 30 capsule 0 Active Additional Information Patient not taking.Reported on 07/22/2024 insulin glargine (LANTUS,BASAGLAR ) 100 unit/mL (3 mL) insulin pen Inject 24 Units under the skin nightly 7.2 mL 0 Active Additional Information Patient not taking.Reported on 06/16/2024 insulin lispro (HumaLOG, ADMELOG) 100 unit/mL insulin penIndications:D iabetes Inject 1-7 Units under the skin 4 (four) times a day (with meals and nightly) See Slinging scale 8.4 mL 0 06/16/20 25 Active linaGLIPtin (TRADJENTA) 5 mg tabletIndication s:type 2 diabetes mellitus Take 1 tablet (5 mg total) by mouth daily 30 tablet 0 06/16/20 25 Active oxyCODONE (ROXICODONE) 5 mg immediate release tabletIndication s:Pain Take 1 tablet (5 mg total) by mouth every 4 (four) hours as needed for pain 42 tablet 0 Active Additional Information Patient not taking.Reported on 07/22/2024 metFORMIN XR (GLUCOPHAGE XR) 500 mg 24 hr tablet Take 2 tablets (1,000 mg total) by mouth 2 (two) times a day 0 Active lisinopriL (PRINIVIL,ZESTRI L) 40 mg tablet Take 1 tablet (40 mg total) by mouth every morning 0 Active omeprazole (PriLOSEC) 40 mg capsuleIndicatio ns:gerd Take 1 capsule (40 mg total) by mouth daily Active fluticasone-umec lidin-vilanter (Trelegy Ellipta) 100-62.5-25 mcg inhalerIndicatio ns:Bronchospasm Prevention with COPD Inhale 1 puff daily Active buPROPion SR (WELLBUTRIN SR) 150 mg 12 hr tablet Take by mouth 7 Active cyanocobalamin, vitamin B-12, 1,000 mcg capsule Take by mouth 8 Active empagliflozin (JARDIANCE) 10 mg tablet Take by mouth daily 0 Active traZODone (DESYREL) 100 mg tablet Take by mouth 9 Active HYDROcodone-acet aminophen (NORCO) 5-325 mg per tabletIndication s:Pain Take 1 tablet by mouth every 6 (six) hours as needed for pain 5 tablet 0 Active Additional Information Patient not taking.Reported on 07/22/2024 Active Problems Problem Noted Date Diagnosed Date Subclavian arterial stenosis 07/23/2024 Assessment & Plan (07/23/2024 3:45 PM BLEACH LIQUOR MAKER): Subclavian artery occlusion. Overall asymptomatic. Continue risk factor modification with ASA statin therapy. Would only recommend intervention if his left upper extremity becomes symptomatic. 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 ASA statin therapy as above. Peripheral vascular disease, unspecified Assessment & Plan (05/28/2024 2:14 PM BLEACH LIQUOR MAKER): Follow-up with bilateral upper and lower extremity arterial Doppler for further evaluation of patient's previous left subclavian artery occlusion as well as lower extremity non limiting claudication Urethral stricture 04/28/2020 Overview (04/28/2020): Added automatically from request for surgery [id number] Cauda equina syndrome 03/15/2020 Overview (03/15/2020): Added automatically from request for surgery [id number] Coronary artery disease invo lving [place] coronary artery of [place] heart without angina pectoris 09/13/2017 PAF (paroxysmal atrial fibrillation) 09/13/2017 Essential hypertension 09/13/2017 Hyperlipidemia LDL goal <70 09/13/2017 Assessment & Plan (07/23/2024 3:45 PM BLEACH LIQUOR MAKER): Stable continue Lipitor Hyperlipidemia associated with type 2 diabetes m ellitus 09/13/2017 Hypertension associated with diabetes 09/13/2017 IDDM (insulin dependent diabetes mellitus) 09/13 Pacemaker 09/13/2017 Overview (06/22/2024): Medtronic Velia Dual Pacemaker. Dx; SSS, PAF. DOI 06/10/2024- [facility]. Chronic leads 2012. [facility] remote. Chronic obstructive pulmonary disease 09/13/2017 Tobacco abuse 09/13/2017 Left arm pain 09/13/2017 Encounters Date Type Department Care Team Description 10/09/2024 7:00 AM CDT Ancillary Procedure [facility] Cardiology [address] [place] [address] [place] [id number] Pacemaker; PAF (paroxysmal atrial fibrillation) ([facility]); SSS (sick sinus syndrome) ([facility]) 09/24/2024 Telephone [facility] Cardiology [address] [place] [phone] Antonio Alas MD 07/24/2024 Orders Only [facility] at [address] [place] [address] Roque Abrams MD Mesenteric artery stenosis (Primary Dx); Other specified symptoms and signs involving the circulatory and respiratory systems 07/22/2024 9:45 AM BLEACH LIQUOR MAKER Office Visit [facility] at [address] [place] [address] Roque Abrams MD Subclavian arterial stenosis (Primary Dx); Peripheral vascular disease, unspecified; Essential hypertension; Hyperlipidemia LDL goal <70; Mesenteric artery stenosis 07/22/2024 Orders Only [facility] at [address] [place] [address] Roque Abrams MD Superior mesenteric artery stenosis (Primary Dx); Other specified symptoms and signs involving the circulatory and respiratory systems from Last 3 Months Surgical History Surgery Date Site/Laterality Comments CHOLECYSTECTOMY POSTERIOR LAMINECTOMY / DECOMPRESSION LUMBAR SPINE 03/08/2020 - 04/06/2020 INSERT / REPLACE / REMOVE PACEMAKER pacemaker~ placed 2006 per pt SUPRAPUBIC CATHETER INSERTION 03/08/2020 - 04/06/2020 Medical History Medical History Date Comments Hypertension Diabetes mellitus (HCC) Anxiety and depression Sleep apnea COPD (chronic obstructive pulmonary disease) (HC C) Coronary artery disease Hyperlipidemia Hypertensive heart disease [place] (myocardial infarction) Vitamin D deficiency Pacemaker Family History Medical History Relation Name Comments Diabetes Brother Heart attack Father Hyperlipidemia Father Heart attack Maternal Grandfather Heart attack Mother Hyperlipidemia Mother Asthma Sister Anesthesia problems Neg Hx Relation Name Status Comments Brother Alive Father (Age 70) Maternal Grandfather Mother Alive Sister Alive Social History Tobacco Use Types Packs/Day Years Used Date Smoking Tobacco: Every Day Cigarettes Smokeless Tobacco: Current Chew Alcohol Use Standard Drinks/Week Comments Not Currently 0 (1 standard drink = 0.6 oz pur e alcohol) in the past 2 months Sex and Gender Information Value Date Recorded Sex Assigned at Not on file Legal Sex Male 8:19 AM BLEACH LIQUOR MAKER Gender Identity Not on file Sexual Orientation Not on file Obstetrics History Last Filed Vital Signs Vital Sign Reading Time Taken Comments Blood Pressure 81/55 07/22/2024 9:57 AM BLEACH LIQUOR MAKER Pulse 75 07/22/2024 9:57 AM BLEACH LIQUOR MAKER Temperature 36.1 C (97 F) 05/23/2020 10:54 AM BLEACH LIQUOR MAKER Respiratory Rate 12 05/23/2020 1:40 PM BLEACH LIQUOR MAKER Oxygen Saturation 98% 07/22/2024 9:57 AM BLEACH LIQUOR MAKER Inhaled Oxygen Concentration - - Weight 97.1 kg (214 lb) 07/22/2024 9:57 AM BLEACH LIQUOR MAKER Height 175.3 cm (5' 9 ) 07/22/2024 9:57 AM BLEACH LIQUOR MAKER Body Mass Index 31.6 07/22/2024 9:57 AM BLEACH LIQUOR MAKER Plan of Treatment Health Maintenance Due Date Last Done Comments Albumin Creatinine Ratio, Urine 1963 Colon Cancer Screening-Colonoscopy 1963 Depression Screening 1963 Hepatitis C Screening 1963 Prostate Cancer Screening-PSA 1963 eGFR 1963 Dilated Eye Exam 1963 Foot Exam 1963 DTaP/Tdap/Td Vaccine (1 - Tdap) 12/13/1974 Hepatitis B Screening 12/13/1981 Regular Well Visit/Exam 18-64 12/13/1981 Pneumococcal vaccine <65 (1 of 2 - PCV) 12/13/1982 Zoster Vaccine (1 of 2) 12/13/2013 Hemoglobin A1C 09/12/2020 03/15/2020 Influenza Vaccine (Season Ended) 2025 Lipid Panel 05/20/2025 05/20/2024, 02/2020, 09/13/2017 Medical Devices Implanted Type Area Artificial Breeding Ranch Supervisor Device Identifier Shelf Expiration Date Model / Serial / Lot Medtronic Ra Lead ([id number])- Implanted: (Quantity not on file) Lead Chest Medtronic Cardiac Rhythm Mgmt [id number] / / Medtronic Rv Lead ([id number])- Implanted: (Quantity not on file) Lead Chest Medtronic Cardiac Rhythm Mgmt [id number] / / Medtronic Pacemaker ([id number])-11/28 Implanted: (Quantity not on file) Pacemaker Left: Chest Medtronic Cardiac Rhythm Mgmt [id number] / / Procedures Procedure Name Priority Date/Time Associated Diagnosis Comments POCT LIPID PANEL Routine 05/20/2024 9:41 AM BLEACH LIQUOR MAKER Need for lipid screening HEMOGLOBIN A1C STAT 03/15/2020 8:43 PM CDT from Last 3 Months or Most Recently Relevant to Health Maintenance Results * POCT lipid panel (05/20/2024 9:41 AM BLEACH LIQUOR MAKER) Cholesterol, POC 162 mg/dL Comment:GLU = 247 HDL, POC 25 mg/dL Triglycerides, POC 137 mg/dL LDL Cholesterol POC 110 mg/dL Chol/HDL Ratio, POC 4.4 Non-HDL Cholesterol, POC 138 mg/dL Cholesterol Total, POC 162 mg/dL Capillary blood 05/20/2024 9 :41 AM BLEACH LIQUOR MAKER Antonio Alas MD POINT OF CARE TEST ORDER DANIA Final Result * (ABNORMAL) Hemoglobin A1c (03/15/2020 8:43 PM CDT) Hgb A1C 12.8(H) 4.0 - 5.6 % [facility] Estimated Average Glucose 321 mg/dL [facility] Comment: The ADA recommends reporting an estimated Average Glucose (eAG) with all Hemoglobin A1c results using the equation derived from a study of 507 normal and diabetic adults. Minority populations were underrepresented and children were not included. (Diabetes Care 31:6379-7975, 2008). The eAG is not equivalent to a fasting glucose. Blood specimen (specimen) 03/15/2020 8:43 PM CDT 03/15/2020 9:31 PM CDT Dony Paul NP LAB BLOOD ORDERABLES Fin al Result [facility] Department [place] [address] from Last 3 Months or Most Recently Relevant to Health Maintenance Insurance [employer] CHOICE MEDICARE PPO [employer] MEDICARE [place] [address] Advance Directives For more information, please contact: [phone] * Full Code (Latest Code Status on File) Date Activated Date Inactivated Comments 03/15/2020 7:12 PM 03/17/2020 6:09 PM * Full Code Date Activated Date Inactivated Comments 03/15/2020 7:10 PM 03/15/2020 7:12 PM Care Teams Deckhand Engineer Relationship Specialty Start Date End Date Avery Almazan MD [address] [facility] [address] [place] [address] PCP - General Family Medicine 09/06/17 Miscellaneous, Not In File 03/17/20
--- OUTSIDE RECORDS SUMMARY | 2024-10-14 00:13 | XMS_ITS | CONTINUITY OF CARE DOCUMENT ---
Author Name eduardo clark Address Unknown Organization [facility] Address [address] [place] [address] Phone [phone] Care Team Providers Care Car Examiner Name Role Phone Angelo GOODRICH, Tacho Unavailable CAMILO KELLER MD Unavailable [phone] CAMILO KELLER MD Unavailable [phone] PROBLEMS Condition Status Date Provider Notes Diabetes mellitus active Tacho Stephens MD HTN essential active Tacho Stephens MD Hepatitis C active Tacho Stephens MD COPD active Tacho Stephens MD Hyperlipidemia active Tacho Stephens MD S/P DC PM - Medtronic//Gen change DC PM [employer]tr[employer] 06/10/24 ( MRI safe) active Amanda Stewart CAD 50% distalRCA 03/2019 active Tacho sellers MD Tobacco abuse active Tacho Stephens MD Abnormal stress nuclear scan completed 201 03/15/07 - Tacho Stephens MD ENCOUNTERS Date Type Provider Location Encounter Diag nosis - In-person encounter Office Visit Tacho Stephens MD [facility] - In-person encounter Office Visit Tacho Stephens MD [facility] CAD 50% distalRCA 03/2019Abnormal stress nuclear scan - In-person encounter Office Visit Tacho Stephens MD [facility] - In-person encounter Office Visit Tacho Stephens MD [facility] Diabetes mellitusHTN essentialHepatitis CCOPDHyperlipidemiaS/P DC PM - Medtronic//Gen change DC PM [employer]tr[employer] 06/10/24 ( MRI safe)CAD 50% distalRCA 03/2019Tobacco abuse VITAL SIGNS Date Observation Value Provider Body Mass Index (Ratio) 34.51 kg/m2 Lorenzo n Kyte blood pressure, alvarez tolic, second observation 100 mm[Hg] Tacho Stephens MD blood pressure, systolic, second observat ion 168 mm[Hg] Tacho Stephens MD [facility]degF[facility] e blood pressure, diastolic 106 mm[Hg] Dharmesh nadine Ahumada blood pressure, systolic 152 mm[Hg] Jacqueline Ahumada respiratory rate E&M 16 /min Charo Ahumada pulse rate 104 /min Charo Armandobel l oxygen saturation, oximetry 96 % Charo Ahumada blood pressure, cuff size regular Cy courtneybasimjolanta Ahumada weight E&M 227 [lb_av] Charo Campbel l height E&M 68 [in_i] Charo Campbel l Body Mass Index (Ratio) 36.94 kg/m2 Esequiel Stephens MD oxygen saturation, oximetry 94 % Charo Ahumada respiratory rate E&M 16 /min Charo Ahumada pulse rate 78 /min Charo Armandobel l blood pressure, cuff size regular Cy nadine Ahumada blood pressure, diastolic 80 mm[Hg] Cy senthila Ahumada blood pressure, systolic 116 mm[Hg] Jacqueline sandovaljolanta Brandyn weight E&M 243 [lb_av] Charo Campbel l height E&M 68 [in_i] Charo roque Body Mass Index (Ratio) 36.49 kg/m2 Esequiel Stephens MD blood pressure, cuff size large Cr nathanael Cee blood pressure, diastolic 80 mm[Hg] Cr nathanael Cee blood pressure, systolic 140 mm[Hg] Cry stal Coleman oxygen saturation, oximetry 97 % Lyndsey Cee respiratory rate E&M 17 /min Lyndsey Cee pulse rate 89 /min Lyndsey robertson weight E&M 240 [lb_av] Lyndsey robertson height E&M 68 [in_i] Lyndsey robertson Body Mass Index (Ratio) 34.82 kg/m2 Esequiel Stephens MD blood pressure, resting Yes Judson titrachel Fall oxygen saturation, oximetry 97 % Chastity Eufemia blood pressure, diastolic 84 mm[Hg] Ch astity Eufemia blood pressure, systolic 124 mm[Hg] Elham stity Eufemia pulse rate 77 /min Chastity Eufemia height E&M 68 [in_i] Chastity Eufemia respiratory rate E&M 16 /min Chastit y Eufemia weight E&M 229 [lb_av] Chastity Eufemia ALLERGIES Allergy Name Onset Date Reaction Criticality Status PENICILLIN High Criticality active RESULTS Date Observation Value Provider Reference Range Interpretation Location 5 prothrombin time (patient) 10.2 s [facility] 9.1-12.0 5 international normalized ratio (INR) 1.0 [facility] 0.8-1.2 5 lipoprotein, beta, serum, point, quantitative, calculated 132 mg/dL [facility] 0-99 High 5 very low density lipoproteins 58 mg/dL [facility] 5-40 High 5 HDL cholesterol, serum 33 mg/dL [facility] >39 Low 5 triglyceride, serum, random 291 mg/dL [facility] 0-149 High 2019/08/1 5 cholesterol, serum 223 mg/dL [facility] 100-199 High 5 calcium, serum 9.2 mg/dL [facility] 8.7-10.2 5 carbon dioxide, venous blood 22 mmol/L [facility] 20-29 5 chloride, serum 103 mmol/L [facility] 96-106 5 potassium, serum 4.4 mmol/L [facility] 3.5-5.2 5 sodium, serum 141 mmol/L [facility] 102-013 0450/08/1 5 urea nitrogen/creatinine ratio, serum 16 [facility] 9-20 5 eGFR if 109 mL/min/{1 .73_m2} [facility] >59 5 eGFR if not 95 mL/min/{1 .73_m2} [facility] >59 5 creatinine, serum 0.91 mg/dL [facility] 0.76-1.27 5 urea nitrogen, blood 15 mg/dL [facility] 6-24 5 blood glucose, random 205 mg/dL [facility] 65-99 High 5 basophil count, absolute 0.0 x10E3/uL [facility] 0.0-0.2 5 Eosinophil Absolute Count 0.1 X10E3/UL [facility] 0.0-0.4 5 monocyte count, blood, automated 0.6 X10E3/UL [facility] 0.1-0.9 5 lymphocyte count, blood, automated 2.3 X10E3/UL [facility] 0.7-3.1 5 Absolute Neutrophils 5.2 X10E3/UL [facility] 1.4-7.0 5 basophils as percent of blood leukocytes 0 % [facility] Not Estab. 5 eosinophils as percent of blood leukocytes 2 % [facility] Not Estab. 5 monocytes as percent of blood leukocytes 7 % [facility] Not Estab. 5 lymphocytes as percent of blood leukocytes 28 % [facility] Not Estab. 5 neutrophils as percent of blood leukocytes 63 % [facility] Not Estab. 5 platelet count 296 X10E3/UL [facility] 365-262 0900/08/1 5 red blood cell distribution width 13.7 % [facility] 12.3-15.4 5 mean corpuscular hemoglobin concentration, RBC 33.3 G/DL [facility] 31.5-35.7 5 mean corpuscular hemoglobin, RBC 31.2 pg [facility] 26.6-33.0 5 mean corpuscular volume, RBC 94 fL [facility] 79-97 5 hematocrit, blood 41.1 % [facility] 37.5-51.0 5 hemoglobin, blood 13.7 g/dL [facility] 13.0-17.7 5 erythrocyte (RBC) count 4.39 X10E6/UL [facility] 4.14-5.80 5 leukocyte count, blood 8.3 X10E3/UL [facility] 3.4-10.8 6 thyroid stimulating hormone, serum 0.998 u[IU]/mL [facility] 0.450-4.500 6 microalbumin/creatin ine ratio, urine 19.8 MG/G CREAT [facility] 0.0-30.0 6 microalbumin, random, urine 3.5 mg/dL [facility] Units converted. See lab report for original value. 6 creatinine, random, urine 177.0 mg/dL [facility] Not Estab. 6 B-type natriuretic peptide 13.2 pg/mL [facility] 0.0-100.0 6 hemoglobin A1C, blood, as % of total hemoglobin 7.9 % [facility] 4.8-5.6 High 6 lipoprotein, beta, serum, point, quantitative, calculated 100 mg/dL [facility] 0-99 High 6 very low density lipoproteins 23 mg/dL [facility] 5-40 6 HDL cholesterol, serum 48 mg/dL [facility] >39 6 triglyceride, serum, random 115 mg/dL [facility] 0-149 6 cholesterol, serum 171 mg/dL [facility] 470-883 4451/05/1 6 platelet count 351 X10E3/UL [facility] 478-504 8670/05/1 6 red blood cell distribution width 12.1 % [facility] 12.3-15.4 Low 6 mean corpuscular hemoglobin concentration, RBC 33.2 G/DL [facility] 31.5-35.7 6 mean corpuscular hemoglobin, RBC 31.1 pg [facility] 26.6-33.0 6 mean corpuscular volume, RBC 94 fL [facility] 79-97 6 hematocrit, blood 44.3 % [facility] 37.5-51.0 6 hemoglobin, blood 14.7 g/dL [facility] 13.0-17.7 6 erythrocyte (RBC) count 4.73 X10E6/UL [facility] 4.14-5.80 6 leukocyte count, blood 11.9 X10E3/UL [facility] 3.4-10.8 High 6 alanine aminotransferase (SGPT), serum 19 1/L [facility] 0-44 6 aspartate aminotransferase (SGOT), serum 19 1/L [facility] 0-40 6 alkaline phosphatase, serum 82 1/L [facility] 39-117 6 bilirubin, serum, total 0.3 mg/dL [facility] 0.0-1.2 6 albumin/globulin ratio, serum 1.6 [facility] 1.2-2.2 6 globulin, serum 3.0 [facility] 1.5-4.5 6 albumin, serum 4.7 g/dL [facility] 3.5-5.5 6 protein, total, serum 7.7 g/dL [facility] 6.0-8.5 6 calcium, serum 9.5 mg/dL [facility] 8.7-10.2 6 carbon dioxide, venous blood 23 mmol/L [facility] 20-29 6 chloride, serum 105 mmol/L [facility] 96-106 6 potassium, serum 4.9 mmol/L [facility] 3.5-5.2 6 sodium, serum 144 mmol/L [facility] 068-135 0434/05/1 6 urea nitrogen/creatinine ratio, serum 13 [facility] 9-20 6 eGFR if 81 mL/min/{1 .73_m2} [facility] >59 6 eGFR if not 70 mL/min/{1 .73_m2} [facility] >59 6 creatinine, serum 1.17 mg/dL [facility] 0.76-1.27 6 urea nitrogen, blood 15 mg/dL [facility] 6-24 6 blood glucose, random 103 mg/dL [facility] 65-99 High HISTORY OF MEDICATION USE Medication Status Instructions Dates Provider Indications Com [facility] ATIF ELLIPTA 100-62.5-25 MCG/INH INHALATION AEROSOL POWDER BREATH ACTIVATED active inhale 1 puff once a day 0 Charo Ahumada JARDIANCE 10 MG ORAL TABLET active take 1 tab daily 0 Charo Ahumada ASPIRIN ADULT LOW DOSE 81 MG ORAL TABLET DELAYED RELEASE active One Tab By Mouth Daily 5 Tacho Stephens MD PRILOSEC OTC TABLET DELAYED RELEASE active one tab once daily 5 Claritza Fall B-12 1000 MCG ORAL CAPSULE active one tab once daily 1 Claritza Fall EQL VITAMIN D3 2000 UNIT ORAL CAPSULE active one tab daily 1 Claritza Fall METOCLOPRAMIDE HCL 5 MG ORAL TABLET active one tab three times daily 1 Elhamstkey Fall #90, 30 days supply, Filled 10/26/2017 CITALOPRAM HYDROBROMIDE 40 MG ORAL TABLET active one tab once daily 1 Elahmstkey Fall #30, 30 days supply, Filled 10/26/2017 TRAZODONE HCL 100 MG ORAL TABLET active as needed 5 Claritza Fall BUPROPION HCL ER (SR) 150 MG ORAL TABLET EXTENDED RELEASE 12 HOUR active one tab twice daily 7 Chastity Eufemia #180, 90 days supply, Filled 02/11/2017 SPIRIVA HANDIHALER 18 MCG INHALATION CAPSULE active one puff once daily 1 Elhamstity Eufemia #30, 30 days supply, Filled 10/26/2017 LISINOPRIL 20 MG ORAL TABLET active one tab once daily 4 Elhamstity Eufemia #30, 30 days supply, Filled 09/28/2017 ATORVASTATIN CALCIUM 80 MG ORAL TABLET active one tab once daily 4 Elhamstity Eufemia #30, 30 days supply, Filled 09/28/2017 FUROSEMIDE 40 MG ORAL TABLET active one tab once daily 4 Elhamstity Eufemia #30, 30 days supply, Filled 09/28/2017 FENOFIBRATE 160 MG ORAL TABLET active one tab once daily 4 Elhamstity Eufemia #30, 30 days supply, Filled 09/28/2017 SOTALOL HCL 80 MG ORAL TABLET active one tab twice daily 4 Claritza Varmaue #60, 30 days supply, Filled 09/28/2017 METFORMIN HCL ER 500 MG ORAL TABLET EXTENDED RELEASE 24 HOUR active four tabs once daily 4 Elhamstkey Eufemia #120, 30 days supply, Filled 09/28/2017 NITROGLYCERIN 0.4 MG SUBLINGUAL TABLET SUBLINGUAL active as needed 4 Elhamstkey Eufemia #25, 30 days supply, Filled 09/28/2017 PROAIR HFA 108 (90 BASE) MCG/ACT INHALATION AEROSOL SOLUTION active as needed 4 Claritza Varmaue #8.5, 17 days supply, Filled 09/28/2017 TOUJEO SOLOSTAR 300 UNIT/ML SUBCUTANEOUS SOLUTION PEN-INJECTOR active 80 units in the morning 1 Tacho Stephens MD #4.5, 20 days supply, Filled 11/25/2017 SOCIAL HISTORY Date Observation Value Provider social history E&M S moking History: P atalyssa currently smokes every day. P atalyssa has been counseled to quit. Tacho Stephens MD social history reviewed E&M revi ewed - no changes required Tacho Stephens MD smoking/tobacco cess ation, patient education and counseling yes Charo Ahumada number of years as a smoker 48 a Charo Brandyn cigarette use yes Charorobert newman smoking status Current every day smoker C abdulaziz Ahumada social history E&M S moking History: P atient currently smokes every day. P atient has been counseled to quit. Tacho Stephens MD social history reviewed E&M revi ewed - no changes required Tacho Stephens MD quit smoking, stage relapse Tacho Stephens MD smoking/tobacco cess ation, patient education and counseling yes Charo Ahumada number of years as a smoker 48 a Charojolanta Ahumada cigarette use yes Charo newman smoking status Current every day smoker C rachelnadine Brandyn social history E&M S moking History: P atient currently smokes every day. P atient has been counseled to quit. Tacho Stephens MD social history reviewed E&M revi ewed - no changes required Tacho Stephens MD smoking/tobacco cess ation, patient education and counseling yes Tacho Stephens MD smoking status Current every day smoker Derrick lance Cee number of grandchildren Tacho Stephens MD social history E&M S moking History: P atient currently smokes every day. P atient has been counseled to quit. Tacho Stephens MD social history reviewed E&M revi ewed - no changes required Tacho Stephens MD smoking/tobacco cess ation, patient education and counseling yes Tacho Stephens MD number of years as a smoker 48 a Claritza Fall cigarette use yes Claritza Fall smoking status Current every day smoker C pepper Fall FUNCTIONAL STATUS Date Observation Value Provider HRA, CV Assess/Plan, Angina (inactive) Management Plan continue current therapy Israel Thomas HRA, CV Assess/Plan, Angina (inactive) Management Plan continue current therapy Tacho Stephens MD HRA, CV Assess/Plan, Angina (inactive) Management Plan continue current therapy aTcho Stephens MD HRA, CV Assess/Plan, Angina (inactive) Management Plan continue current therapy Tacho Stephens MD FAMILY HISTORY Family Member Condition Father Family History of Nona ng Cancer: Father Family History of Hy pertension: Mother Family History of Hy pertension: INSURANCE PROVIDERS Payer name Policy type / Coverage type [place] [employer] [facility]URE (PPO C-SNP) Medicare [id number] ADVANCE DIRECTIVES Name Date DISCUSSED - NO DECISION MADE TREATMENT PLAN Date Name Performer Cardiology follow up :Continues on Jardiance, Metformin, and Toujeo. Reduced intake of carbohydrates and sugars advised. [facility] Cardiology follow up :STRONGLY ENCOURAGED TO STOP SMOKING; SMOKING CESSATION TECHNIQUES DISCUSSED. [facility] Cardiology follow up :Continues on Spiriva and Proair. [facility] Cardiology follow up :Recent LDL elevated at 147. Compliance with medications was stressed. He would benefit from a repeat lipid panel. [facility] Cardiology follow up :Blood pressure elevated today likely due to pain. He is planned to be seen in your office tomorrow and will have his blood pressure checked again. We aim for a blood pressure less than 130/80. If it remains elevated, he would likely benefit from changes in antihypertensives. [facility] Cardiology follow up :Normal device function. Continues on Sotalol Not on anticoagulation due to no recurrence of afib. [facility] Cardiology follow up :Chest pain free. Nonobstructive CAD on cath. He continues on Aspirin. [facility] hospital follow up :Continues on Spiriva and Proair. Tacho Stephens MD Cardiology hospital follow up :Recent LDL elevated at 147. Compliance with medications was stressed. Will repeat lipid panel at next appt. Tacho Stephens MD Cardiology hospital follow up :Blood pressure control is satisfactory. Tacho Stephens MD Cardiology hospital follow up :Nonobstructive CAD on cath. He continues on Aspirin. Tacho Stephens MD Cardiology hospital follow up :Normal device function. Continues on Sotalol QTC 396. Not on anticoagulation due to no recurrence of afib. Will arrange for device interrogation. Tacho Stephens MD Cardiology:STRONGLY ENCOURAGED TO STOP SMOKING; SMOKING CESSATION TECHNIQUES DISCUSSED. Tacho Stephens MD Cardiology:Blood pre ssure slightly elevated. Will arrange renal angiogram. Tacho Stepehns MD Cardiology:Recent A1 c 7.9%. Continues on Metformin and Toujeo. Tacho Stephens MD Cardiology:Continues on Atorvastatin and fenofibrate. His recent LDL was 100. We aim for an LDL < 70. Tacho Stephens MD Cardiology:Normal de vice function. Continues on Sotalol QTC 408. Not on anticoagulation due to no recurrence of afib. The device interrogation showed NSVT and he is planned for a cath. Tacho Stephens MD Cardiology:Will arra nge cardiac cath. Patient is agreeable. T he risks and benefits of the procedure, including but not limited the risk of heart attack, , stroke, bleeding, kidney failure, and loss of limb as well as the alternative of continued medical therapy, stress testing or bypass surgery were discussed with the patient and any present family members and the patient wishes to proceed with cardiac cath and stenting. The patient and family had opportunity to discuss this with us. Written material including informed consent was given out. Tacho Stephens MD Cardiology:Abnormal stress test in a patient who gives a history of CAD. Will arrange a cardiac cath. The risks and benefits of the procedure, including but not limited the risk of heart attack, , stroke, bleeding, kidney failure, and loss of limb as well as the alternative of continued medical therapy, stress testing or bypass surgery were discussed with the patient and any present family members and the patient wishes to proceed with cardiac cath and stenting. The patient and family had opportunity to discuss this with us. Written material including informed consent was given out. Tacho Stephens MD Cardiology:STRONGLY ENCOURAGED TO STOP SMOKING; SMOKING CESSATION TECHNIQUES DISCUSSED. Tacho Stephens MD Cardiology:Continues on Spiriva and Proair. Tacho Stephens MD Cardiology:Continues on Fenofibrate and Atorvastatin. LDL 100 today. We aim for an LDL <70. He will benefit from Zetia. Tacho Stephens MD Cardiology:Blood pressure contro l is satisfactory. Tacho Stephens MD Cardiology:In sinus rhythm. Continues on Sotalol. Unclear why not on anticoagulation. Device interrogation today showed no afib and no VT over the last 18 months. Tacho Stephens MD Cardiology:Chest bri n and palpitations in a patient with possible history of CAD and multiple risk factors. He denies of ever having a cath. Will arrange stress test and echocardiogram. Tacho Stephens MD Date Name LIPID PANEL COMPREHENSIVE METABO LIC PANEL, W/EGFR PROTHROMBIN TIME WIT H INR LIPID PANEL CBC (INCLUDES DIFF/P LT) BASIC METABOLIC PANE L W/EGFR Renal Angio - [facility] Cardiac Cath - Left - Complete Echo Stress Regadenoson TSH, 3RD GENERATION W/REFLEX TO FT4 Vitamin D, 25-Hydrox y LIPID PANEL CBC (H/H, RBC, INDIC ES, WBC, PLT) URINALYSIS, RANDOM, MICROALB/CREATININE HEMOGLOBIN A1c COMPREHENSIVE METABO LIC PANEL, W/EGFR B TYPE NATRIURETIC P EPTIDE (BNP) HISTORY OF PROCEDURES Procedure Date Procedure Name Provider Procedure Notes S tatus EKG Tacho Stephens MD complet ed Pacemaker Interrogation, Remote (Tech) Tacho Stephens MD INTERROGATION REMOTE </90 D VACCINE CUSTOMER REPRESENTATIVE REVIEW completed Pacemaker Interrogation, Remote (Prof) Tacho Stephens MD INTERROGATION EVAL REMOTE </90 D 1/2/MANAGER [employer] P completed Pacemaker Interrogation, Remote (Tech) Tacho Stephens MD INTERROGATION REMOTE </90 D VACCINE CUSTOMER REPRESENTATIVE REVIEW completed Pacemaker Interrogation, Remote (Prof) Tacho Stephens MD INTERROGATION EVAL REMOTE </90 D 1/2/MANAGER [employer] P completed EKG Tacho Stephens MD complet ed Regadenoson, 4 units Tacho Stephens MD completed Cardiolite, 2 units Tacho Stephens MD completed SPECT Images Tacho Stephens MD compl eted Stress EKG Tacho Stephens MD complet ed ICM Interrogation, Remote (Prof) Tacho Stephens MD INTERROGATION EVAL REMOTE </30 D CV MNTR SYS completed ICM Interrogation, Remote (Tech) Tacho Stephens MD INTERROGATION EVAL REMOTE </30 D TECH REVIEW completed EKG Tacho Stephens MD complet ed
--- OUTSIDE RECORDS SUMMARY | 2024-10-14 00:13 | XMS_ITS | Referral Summary ---
Author Organization [facility] Address [address] [place] [address] Care Team Providers Care Wafer Machine Operator Name Role Phone Avery Almazan MD Primary Care Provider Miscellaneous, Not In File Unavailable Unava ilable Encounters Date Type Department Care Team Description 10/09/2024 7:00 AM CDT Ancillary Procedure [facility] Cardiology [address] [place] [address] [place] [phone] Pacemaker; PAF (paroxysmal atrial fibrillation) ([facility]); SSS (sick sinus syndrome) ([facility]) 09/24/2024 Telephone [facility] Cardiology [address] [place] [address] [place] [phone] Antonio Alas MD 07/24/2024 Orders Only [facility] Vascular at [address] [place] [address] Roque Abrams MD Mesenteric artery stenosis (Primary Dx); Other specified symptoms and signs involving the circulatory and respiratory systems 07/22/2024 Orders Only [facility] at [address] [place] [address] Roque Abrams MD Superior mesenteric artery stenosis (Primary Dx); Other specified symptoms and signs involving the circulatory and respiratory systems 07/22/2024 9:45 AM SHAGGER Office Visit [facility] at [address] [place] [address] Roque Abrams MD Subclavian arterial stenosis (Primary Dx); Peripheral vascular disease, unspecified; Essential hypertension; Hyperlipidemia LDL goal <70; Mesenteric artery stenosis from Last 3 Months Allergies Active Allergy Reactions Criticality Noted Date [...] 07/23/2024 Assessment & Plan (07/23/2024 3:45 PM SHAGGER): Subclavian artery occlusion. Overall asymptomatic. Continue risk factor modification with ASA statin therapy. Would only recommend intervention if his left upper extremity becomes symptomatic. Mesenteric artery stenosis 07/23/2024 Assessment & Plan (07/23/2024 3:46 PM SHAGGER): Asymptomatic celiac and SMA stenosis. ASA statin therapy as above. Peripheral vascular disease, unspecified 024 Assessment & Plan (05/28/2024 2:14 PM SHAGGER): Follow-up with bilateral upper and lower extremity arterial Doppler for further evaluation of patient's previous left subclavian artery occlusion as well as lower extremity non limiting claudication Urethral stricture 04/28/2020 Overview (04/28/2020): Added automatically from request for surgery [id number] Cauda equina syndrome 03/15/2020 Overview (03/15/2020): Added automatically from request for surgery [id number] Coronary artery disease invo lving [place] coronary artery of [place] heart without angina pectoris 09/13/2017 PAF (paroxysmal atrial fibrillation) 09/13/2017 Essential hypertension 09/13/2017 Hyperlipidemia LDL goal <70 09/13/2017 Assessment & Plan (07/23/2024 3:45 PM SHAGGER): Stable continue Lipitor Hyperlipidemia associated with type 2 diabetes m ellitus 09/13/2017 Hypertension associated with diabetes 09/13/2017 IDDM (insulin dependent diabetes mellitus) 09/13 Pacemaker 09/13/2017 Overview (06/22/2024): Medtronic Velia Dual Pacemaker. Dx; SSS, PAF. DOI 06/10/2024- Evette. Chronic leads 2012. [facility] remote. Chronic obstructive pulmonary disease 09/13/2017 Tobacco abuse 09/13/2017 Left arm pain 09/13/2017 Social History Tobacco Use Types Packs/Day Years Used Date Smoking Tobacco: Every Day Cigarettes Smokeless Tobacco: Current Chew Alcohol Use Standard Drinks/Week Comments Not Currently 0 (1 standard drink = 0.6 oz pur e alcohol) in the past 2 months Sex and Gender Information Value Date Recorded Sex Assigned at Not on file Legal Sex Male 8:19 AM SHAGGER Gender Identity Not on file Sexual Orientation Not on file Last Filed Vital Signs Vital Sign Reading Time Taken Comments Blood Pressure 81/55 07/22/2024 9:57 AM SHAGGER Pulse 75 07/22/2024 9:57 AM SHAGGER Temperature 36.1 C (97 F) 05/23/2020 10:54 AM SHAGGER Respiratory Rate 12 05/23/2020 1:40 PM SHAGGER Oxygen Saturation 98% 07/22/2024 9:57 AM SHAGGER Inhaled Oxygen Concentration - - Weight 97.1 kg (214 lb) 07/22/2024 9:57 AM SHAGGER Height 175.3 cm (5' 9 ) 07/22/2024 9:57 AM SHAGGER Body Mass Index 31.6 07/22/2024 9:57 AM SHAGGER Plan of Treatment Not on file Medical Devices Implanted Type Area Director Internal Control Device Identifier Shelf Expiration Date Model / Serial / Lot Medtronic Ra Lead ([id number])- Implanted: (Quantity not on file) Lead Chest Medtronic Cardiac Rhythm Mgmt [id number] / / Medtronic Rv Lead ([id number])- Implanted: (Quantity not on file) Lead Chest Medtronic Cardiac Rhythm Mgmt [id number] / / Medtronic Pacemaker ([id number])-11/28 Implanted: (Quantity not on file) Pacemaker Left: Chest Medtronic Cardiac Rhythm Mgmt [id number] / / Procedures Procedure Name Priority Date/Time Associated Diagnosis Comments POCT LIPID PANEL Routine 05/20/2024 9:41 AM SHAGGER Need for lipid screening HEMOGLOBIN A1C STAT 03/15/2020 8:43 PM CDT from Last 3 Months or Most Recently Relevant to Health Maintenance Results * POCT lipid panel (05/20/2024 9:41 AM SHAGGER) Cholesterol, POC 162 mg/dL Comment:GLU = 247 HDL, POC 25 mg/dL Triglycerides, POC 137 mg/dL LDL Cholesterol POC 110 mg/dL Chol/HDL Ratio, POC 4.4 Non-HDL Cholesterol, POC 138 mg/dL Cholesterol Total, POC 162 mg/dL Capillary blood 05/20/2024 9 :41 AM SHAGGER us Antonio Alas MD POINT OF CARE TEST ORDER DANIA Final Result * (ABNORMAL) Hemoglobin A1c (03/15/2020 8:43 PM CDT) Hgb A1C 12.8(H) 4.0 - 5.6 % MATTIE TORRES Estimated Average Glucose 321 mg/dL MATTIE TORRES Comment: The ADA recommends reporting an estimated Average Glucose (eAG) with all Hemoglobin A1c results using the equation derived from a study of 507 normal and diabetic adults. Minority populations were underrepresented and children were not included. (Diabetes Care 31:8852-6809, 2008). The eAG is not equivalent to a fasting glucose. Blood specimen (specimen) 03/15/2020 8:43 PM CDT 03/15/2020 9:31 PM CDT us Dony Paul NP LAB BLOOD ORDERABLES Fin al Result [facility] Department [place] [address] from Last 3 Months or Most Recently Relevant to Health Maintenance Insurance [employer] CHOICE MEDICARE PPO HU[employer] CHOICE MEDICARE PPO MEDICARE ADVANTAGE Advance Directives For more information, please contact: [phone] * Full Code (Latest Code Status on File) Date Activated Date Inactivated Comments 03/15/2020 7:12 PM 03/17/2020 6:09 PM * Full Code Date Activated Date Inactivated Comments 03/15/2020 7:10 PM 03/15/2020 7:12 PM Care Teams Wafer Machine Operator Relationship Specialty Start Date End Date Avery Almazan MD [address] [facility] [address] [place] [address] PCP - General Family Medicine 09/06/17 Miscellaneous, Not In File 03/17/20
--- OUTSIDE RECORDS SUMMARY | 2024-10-14 00:13 | XMS_ITS | Continuity of Care Document ---
Author Organization [facility] Address [address] [place] [address] [place] [address] Phone Care Team Providers Care Plow Holder Name Role Phone Wyatt GOLD, [place] Unavailable [...] Diagnoses Date Provider Providers Copied on Encounter [facility], [address] [place], [place] [address]S[place], [id number], [place] tel:[phone] [facility] rash (chief complaint)s tress (chief complaint) No Information Wyatt GOLD [place]. [address] [place] [address] Sandra Griffith, , [id number], [place]. tel:[phone] Family History Family Member Type Diagnosis Age At Onset No Information Payers Payer name Insurance type Covered alliance party ID Authorjay bobo(s) [facility] BL [id number] Social History Type Description Quantity Date Captured [...]
[2024-10-14 11:22] VITALS: BP 103/67; PULSE 87; RESP 18; TEMP 36.4; O2SAT 98; BMI 30.9
[2024-10-14] MEDS: LACTATED RINGERS 1,000 ML 150 ML IV CONT (11:53)
[2024-10-14 11:59] LABS: Glucose Point of Care 100 mg/dl (65-105)
--- NOTE | 2024-10-14 12:27 | P.PNAN_ITS ---
Anes - Initial Pre Proc Eval Procedure: Operation Date: 10/14/24 13:00 Proposed Procedures p Colonoscopy - Huan Singleton MD Date/Time: 10/14/24 12:27 Surgeon: Huan Singleton MD Pre Op Diagnosis: Fecal abnormalities,anemia Patient Data Age: 58 Gender: M Height: 1.75 m Weight: 95 kg Last Vital Signs Temp 36.4 C 10/14/24 11:22 Pulse 87 10/14/24 11:22 Resp 18 10/14/24 11:22 BP 103/67 10/14/24 11:22 Pulse Ox 98 10/14/24 11:22 O2 Del Method Room Air 10/14/24 11:22 Allergies Allergy/AdvReac Type Severity Reaction Status Date / Time Penicillins Allergy Unknown Swelling Verified 10/14/24 11:34 Home Medications ?Medication ?Instructions ?Recorded ?Confirmed ?Type alcohol swabs 1 pad topical .before fingersticks 05/28/19 10/13/24 Rx #200 ea aspirin 325 mg tablet (Lamin 325 mg PO DAILY #90 tabs 05/28/19 10/14/24 Rx Aspirin) nitroglycerin 0.4 mg sublingual 0.4 mg sublingual Q5M PRN chest 05/28/19 10/13/24 Rx tablet pain #30 tabs blood-glucose meter (Accu-Chek #1 ea 12/27/20 10/14/24 Rx Guide Me Glucose Meter) lancets (Accu-Chek Softclix See Rx Instructions .Route 11/16/21 10/14/24 Rx Lancets) .COMPLEX #100 ea pen needle, diabetic 32 gauge x #200 ea 01/29/22 08/07/24 Rx (BD Ultra-Fine Maru Pen Needle) insulin aspart U-100 100 unit/mL See Rx Instructions subcut .qac 07/13/22 10/14/24 Rx (3 mL) subcutaneous pen (Novolog #15 mL FlexPen U-100 Insulin aspart) blood sugar diagnostic (Accu-Chek See Rx Instructions .Route 09/10/22 10/14/24 Rx Guide test strips) .COMPLEX #350 strips albuterol sulfate 90 mcg/actuation 1 puff inhalation Q4H PRN 06/09/24 10/13/24 History aerosol inhaler Shortness Of Breath atorvastatin 80 mg tablet 80 mg PO DAILY 06/09/24 10/14/24 History cholecalciferol (vitamin D3) 50 1,000 unit PO DAILY 06/09/24 10/14/24 History mcg (2,000 unit) tablet (Vitamin D3) fenofibrate 160 mg tablet 160 mg PO DAILY 06/09/24 10/14/24 History fluticasone fur. 100 mcg-umeclid 1 ea inhalation DAILY 06/09/24 10/14/24 History 62.5 mcg-vilant 25 mcg inhalat.powder (Trelegy Ellipta) furosemide 40 mg tablet 40 mg PO DAILY 06/09/24 10/14/24 History glipizide 5 mg tablet, extended 5 mg PO QAM 06/09/24 10/14/24 History release 24 hr hydroxyzine HCl 10 mg tablet 10 mg PO HS PRN nausea and vomiting 06/09/24 10/14/24 History insulin glargine 100 unit/mL (3 30 unit subcut HS 06/09/24 10/14/24 History mL) subcutaneous pen (Lantus Solostar U-100 Insulin) lisinopril 40 mg tablet 40 mg PO DAILY 06/09/24 10/14/24 History metformin 500 mg tablet,extended 1,000 mg PO BID 06/09/24 10/14/24 History release 24 hr omeprazole 40 mg capsule,delayed 40 mg PO DAILY 06/09/24 10/14/24 History release sotalol 80 mg tablet 80 mg PO Q12H 06/09/24 10/14/24 History Laboratory Tests 10/14/24 11:43 POC Capillary Glucose 100 mg/dl (65-105) Patient hx anesthesia problems: none Family hx anesthesia problems: none Results Review: All pre-operative results and documents have been reviewed as part of the pre- operative evaluation. [facility] Past Medical History Medical History Pacemaker Dr [place], [place] Hyperlipidemia Insulin dependent diabetes mellitus Smoking PAD (peripheral artery disease) occluded L subclavian, L vertebral both w/ collateral flow Hypertension Renal lithiasis COPD (chronic obstructive pulmonary disease) CAD (coronary artery disease) Tobacco use Old [place] (myocardial infarction) 2012; no stents Family History Family History Sibling Diabetes mellitus Mother Family history of cardiovascular disease Social History Social History Social History: Smoking packs per day: 1 Smoking cigarettes per day: 20.0 Years smoked: 55 Smoking pack-years: 55.00 Smoking status: Current every day smoker Tobacco type: cigarettes Smokeless tobacco user: chewing tobacco Second hand tobacco smoke exposure: Yes Alcohol intake: former Substance use: never Substance use type: does not use Do You Feel Safe in your Home?: Yes Lack of Transportation: No Lack of Food: Never True Current Housing: I Have Housing Concerned About Future Housing: No Difficulty Paying Gas/Electric Bills: No Difficulty Paying for Meds: No Currently Unemployed: YES Education: Don't Know Difficulty w/ Childcare or Family Care: No Living arrangements: alone Occupation/Education: unemployed Gender identity (if verbalized by the patient): Male Sexual Orientation (if Verbalized by the Patient): Straight or Heterosexual Anes - Eval Final PreProcedure Day of Procedure 10/14/24 12:27 Patient weight: obese Heart: regular rate and rhythm Lungs: decreased breath sounds Airway: Mallampati scale class II Neurological: alert and oriented Last oral intake: >/= 8 hours ASA classification: IV Emergent: no Anesthetic plan: proceed Anesthesia type and monitoring: general GIVS and standard monitoring Results Review: All pre-operative results and documents have been reviewed as part of the pre- operative evaluation. Informed Consent: The patient's anesthetic plan and its attendant risks and benefits were discussed with the patient/family/POA. Questions were solicited and answers provided to the satisfaction of the patient/family/POA.
--- NOTE | 2024-10-14 13:07 | PM.IMHP ---
H&P: HPI History of Present Illness Date/Time: 10/14/24 13:07 Chief Complaint: History of colon polyps Narrative: The patient has a history of colonic polyps, the last colonoscopy was 5 years ago Review of Systems Review of Systems: All systems reviewed & are unremarkable except as noted in HPI and below PMFSH Past Medical History Medical History Pacemaker Dr [place], [place] Hyperlipidemia Insulin dependent diabetes mellitus Smoking PAD (peripheral artery disease) occluded L subclavian, L vertebral both w/ collateral flow Hypertension Renal lithiasis COPD (chronic obstructive pulmonary disease) CAD (coronary artery disease) Tobacco use Old [place] (myocardial infarction) 2012; no stents Family History Family History Sibling Diabetes mellitus Mother Family history of cardiovascular disease Social History Social History Social History: Smoking packs per day: 1 Smoking cigarettes per day: 20.0 Years smoked: 55 Smoking pack-years: 55.00 Smoking status: Current every day smoker Tobacco type: cigarettes Smokeless tobacco user: chewing tobacco Second hand tobacco smoke exposure: Yes Alcohol intake: former Substance use: never Substance use type: does not use Do You Feel Safe in your Home?: Yes Lack of Transportation: No Lack of Food: Never True Current Housing: I Have Housing Concerned About Future Housing: No Difficulty Paying Gas/Electric Bills: No Difficulty Paying for Meds: No Currently Unemployed: YES Education: Don't Know Difficulty w/ Childcare or Family Care: No Living arrangements: alone Occupation/Education: unemployed Gender identity (if verbalized by the patient): Male Sexual Orientation (if Verbalized by the Patient): Straight or Heterosexual Meds Home Medications and Allergies Home Medications ?Medication ?Instructions ?Recorded ?Confirmed ?Type alcohol swabs 1 pad topical .before fingersticks 05/28/19 10/13/24 Rx #200 ea aspirin 325 mg tablet (Lamin 325 mg PO DAILY #90 tabs 05/28/19 10/14/24 Rx Aspirin) nitroglycerin 0.4 mg sublingual 0.4 mg sublingual Q5M PRN chest 05/28/19 10/13/24 Rx tablet pain #30 tabs blood-glucose meter (Accu-Chek #1 ea 12/27/20 10/14/24 Rx Guide Me Glucose Meter) lancets (Accu-Chek Softclix See Rx Instructions .Route 11/16/21 10/14/24 Rx Lancets) .COMPLEX #100 ea pen needle, diabetic 32 gauge x #200 ea 01/29/22 08/07/24 Rx 5/32 (BD Ultra-Fine Maru Pen Needle) insulin aspart U-100 100 unit/mL See Rx Instructions subcut .qac 07/13/22 10/14/24 Rx (3 mL) subcutaneous pen (Novolog #15 mL FlexPen U-100 Insulin aspart) blood sugar diagnostic (Accu-Chek See Rx Instructions .Route 09/10/22 10/14/24 Rx Guide test strips) .COMPLEX #350 strips albuterol sulfate 90 mcg/actuation 1 puff inhalation Q4H PRN 06/09/24 10/13/24 History aerosol inhaler Shortness Of Breath atorvastatin 80 mg tablet 80 mg PO DAILY 06/09/24 10/14/24 History cholecalciferol (vitamin D3) 50 1,000 unit PO DAILY 06/09/24 10/14/24 History mcg (2,000 unit) tablet (Vitamin D3) fenofibrate 160 mg tablet 160 mg PO DAILY 06/09/24 10/14/24 History fluticasone fur. 100 mcg-umeclid 1 ea inhalation DAILY 06/09/24 10/14/24 History 62.5 mcg-vilant 25 mcg inhalat.powder (Trelegy Ellipta) furosemide 40 mg tablet 40 mg PO DAILY 06/09/24 10/14/24 History glipizide 5 mg tablet, extended 5 mg PO QAM 06/09/24 10/14/24 History release 24 hr hydroxyzine HCl 10 mg tablet 10 mg PO HS PRN nausea and vomiting 06/09/24 10/14/24 History insulin glargine 100 unit/mL (3 30 unit subcut HS 06/09/24 10/14/24 History mL) subcutaneous pen (Lantus Solostar U-100 Insulin) lisinopril 40 mg tablet 40 mg PO DAILY 06/09/24 10/14/24 History metformin 500 mg tablet,extended 1,000 mg PO BID 06/09/24 10/14/24 History release 24 hr omeprazole 40 mg capsule,delayed 40 mg PO DAILY 06/09/24 10/14/24 History release sotalol 80 mg tablet 80 mg PO Q12H 06/09/24 10/14/24 History Allergies Allergy/AdvReac Type Severity Reaction Status Date / Time Penicillins Allergy Unknown Swelling Verified 10/14/24 11:34 Vital Signs Vital Signs - 24 hr 10/14/24 11:22 Temperature 97.6 F Pulse Rate 87 Respiratory Rate 18 Blood Pressure 103/67 Pulse Oximetry 98 Oxygen Delivery Room Air Exam Const: General: cooperative and healthy appearing Resp: Effort & Inspection: normal respiratory effort and able to speak in complete sentences Auscultation: clear to auscultation bilaterally Cardio: Rate: regular rate Rhythm: regular rhythm GI: Inspection: normal to inspection GI Palp: No No hepatosplenomegaly present Auscultation: normal bowel sounds Rectal Exam: deferred Skin: General skin exam: normal color Psych: Appearance: grossly normal Mental Status: mental status grossly normal Assessment and Plan Assessment and plan (1) Colon cancer screening: Code(s): Z12.11 - Encounter for screening for malignant neoplasm of colon Status: Acute Assessment and Plan: The patient is deemed a good candidate for the procedure. Consent signed. Will proceed.
[2024-10-14 13:29] VITALS: BP 81/47; PULSE 77; RESP 24; O2SAT 98
[2024-10-14 13:39] VITALS: BP 90/73; PULSE 73; RESP 23; O2SAT 99
[2024-10-14 13:46] LABS: Glucose Point of Care 83 mg/dl (65-105)
[2024-10-14 13:49] VITALS: BP 100/72; PULSE 71; RESP 21; O2SAT 100
== END 2024-10-14 14:07 | disposition home or self-care (01) ==
PROVIDERS: PCP Family Medicine; Referring Provider Physician Assistant; Visit Provider Internal Medicine Gastroenterology
PROC: 0DJD8ZZ Inspection of Lower Intestinal Tract, Via Natural or Artificial Opening Endoscopic (ICD-10-PCS; CPT 45378; principal; 2024-10-14 13:00)
DX: Z12.11 Encounter for screening for malignant neoplasm of colon (principal); K51.90 Ulcerative colitis, unspecified, without complications; K64.8 Other hemorrhoids; K62.89 Other specified diseases of anus and rectum; D64.9 Anemia, unspecified; E78.5 Hyperlipidemia, unspecified; E11.9 Type 2 diabetes mellitus without complications; I73.89 Other specified peripheral vascular diseases; I10 Essential (primary) hypertension; J44.9 Chronic obstructive pulmonary disease, unspecified; I25.10 Atherosclerotic heart disease of native coronary artery without angina pectoris; I25.2 Old myocardial infarction; F17.220 Nicotine dependence, chewing tobacco, uncomplicated; F17.210 Nicotine dependence, cigarettes, uncomplicated; E66.9 Obesity, unspecified; Z68.30 Body mass index [BMI] 30.0-30.9, adult; Z79.4 Long term (current) use of insulin; Z79.82 Long term (current) use of aspirin; Z79.51 Long term (current) use of inhaled steroids; Z79.84 Long term (current) use of oral hypoglycemic drugs; Z98.890 Other specified postprocedural states; Z95.0 Presence of cardiac pacemaker; Z86.0100 Personal history of colon polyps, unspecified; Z87.442 Personal history of urinary calculi; Z82.49 Family history of ischemic heart disease and other diseases of the circulatory system
CPT/HCPCS: G0105; 82948; 88305; J2003; J2704; J7120

== ENCOUNTER 2024-12-30 11:38 | Outpatient (CLI) | payer MEDICARE, SELFPAY ==
[2024-12-30 11:57] LABS: Red Blood Count 4.23 M/mm3 (4.6-6.20); White Blood Count 12.1 K/mm3 (4.5-10.0)
[2024-12-30 11:58] LABS: Basophils Absolute Auto 0.1 K/mm3 (0.0-0.1); Basophils Percent Auto 0.6 % (0.2-1.2); Eosinophils Absolute Auto 0.3 K/mm3 (0-0.3); Eosinophils Percent Auto 2.2 % (0-4.4); Hematocrit 37.9 % (42.0-52.0); Hemoglobin 12.9 g/dL (14.0-18.0); Immature Granulocyte Absolute 0.06 K/mm3 (0.00-0.031); Immature Granulocyte Percent A 0.5 % (0-0.5); Lymphocytes Absolute Auto 3.23 K/mm3 (0.9-3.2); Lymphocytes Percent Auto 26.8 % (18.3-44.2); Mean Corpuscular Hemoglobin 30.5 pg (26-34); Mean Corpuscular Volume 89.6 fl (80-100); Mean Platelet Volume 9.9 fl (7.4-10.4); Monocytes Absolute Auto 0.7 K/mm3 (0.1-0.6); Monocytes Percent Auto 5.5 % (2.6-8.5); Neutrophils Absolute Auto 7.8 K/mm3 (1.3-6.7); Neutrophils Percent Auto 64.4 % (45.5-73.1); Platelet Count Result 341 k/mm3 (150-375); Red Cell Distribution Width 12.4 % (11.5-14.5)
[2024-12-30 12:04] LABS: Add Urine Microscopic? YES; Appearance Urine Clear (Clear); Bacteria Urine None Seen /hpf; Bilirubin Urine Negative (Negative); Blood Urine Negative (Negative); Color Urine Yellow (Yellow); Glucose Urine UA 3+ mg/dL (Negative); Ketones Urine Negative (Negative); Leukocyte Esterase Ur 2+ LEU/UL (Negative); Nitrate Urine Negative (Negative); Non Pathogenic Casts 0-2; Protein Urine Negative (Negative); RBC Urine 0-2 /hpf (0-2); Specific Grav Ur 1.015 (1.001-1.035); Squamous Epithelial Cell Urine None Seen /hpf (Few); Urobilinogen Urine 0.2 mg/dL (<2.0); pH Urine 5.5 (5.0-9.0)
[2024-12-30 12:13] LABS: Hemoglobin A1C 9.5 % (<5.7)
[2024-12-30 12:29] LABS: Iron 90 ug/dL (49-181)
[2024-12-30 12:34] LABS: Alanine Aminotransferase 34 U/L (6-50); Albumin Level 4.4 g/dL (3.5-5.1); Alkaline Phosphatase 69 U/L (38-126); Anion Gap 12 mmol/L (4-12); Aspartate Amino Transferase 29 U/L (17-59); Bilirubin,Total 0.4 mg/dL (0.2-1.3); Blood Urea Nitrogen 25 mg/dL (9-20); Calcium 10.5 mg/dL (8.4-10.2); Carbon Dioxide 24 mmol/L (22-30); Chloride 102 mmol/L (98-107); Estimated Glomerular Filt Rate > 60; Glucose 348 mg/dL (65-110); Potassium 4.1 mmol/L (3.4-5.0); Sodium 138 mmol/L (137-145); Total Protein 8.1 g/dL (6.3-8.2)
[2024-12-30 12:39] LABS: Percent Iron Saturation 22 % (20-50)
[2024-12-30 13:48] LABS: Folic Acid > 20.0 ng/mL (2.76->20)
== END 2024-12-30 11:39 | disposition home or self-care (01) ==
LOC: ANHLAB 11:39
PROVIDERS: PCP Family Medicine; Visit Provider Physician Assistant
DX: D64.9 Anemia, unspecified (principal); E11.65 Type 2 diabetes mellitus with hyperglycemia; I11.9 Hypertensive heart disease without heart failure; E55.9 Vitamin D deficiency, unspecified; F32.9 Major depressive disorder, single episode, unspecified; I25.10 Atherosclerotic heart disease of native coronary artery without angina pectoris; J44.9 Chronic obstructive pulmonary disease, unspecified; D72.829 Elevated white blood cell count, unspecified; I73.9 Peripheral vascular disease, unspecified; Z79.4 Long term (current) use of insulin
CPT/HCPCS: 36415; 80053; 81001; 82607; 82728; 82746; 83036; 83540; 83550; 85025

== ENCOUNTER 2025-04-28 15:39 | Outpatient (CLI) | payer MEDICARE, SELFPAY ==
--- OUTSIDE RECORDS SUMMARY | 2004-03-30 04:20 | XMS_ITS | Continuity of Care Document ---
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 Name Role Phone Wyatt GOLD, [place] Unavailable Unavailable Allergies, Adverse Reactions, Alerts Substance Reaction Status Criticality Penicillins Unknown Active No Information Medications Medication Instructions Dosage Effective Dates (start - stop) Status Comments Vistaril 25 mg Cap Take one tablet by mouth every 8 hours for itching or stress - Active DexPak 1.5 mg (51 tabs) Dose Pack, Tab as directed - Active Lotrisone 1 %-0.05 % Topical Cream apply thinly bid - Active SYMBYAX 6/25MGCAPSULE 1 po qd - Acti ve Advance Directives Directive Yes / No Effective Date File Name Resuscitation Not Answered N/A N/A Life Support Not Answered N/A N/A Intubation Not Answered N/A N/A Antibiotics Not Answered N/A N/A IV Fluid Support Not Answered N/A N/A Tube Feed Not Answered N/A N/A Other Directive N/A N/A WARNING:The information contained in this section is historical and is provided for information only and does not constitute a legal document or any assurance that the information is still accurate. Please verify the information with the garrett of the legal document before using it for clinical purposes. Encounters Encounter Description Practice Location Reason(s) For Visit Diagnoses Date Provider Providers Copied on Encounter [facility], [address] [place], [place] [address]S[place], [id number], [place] tel:[phone] [facility] rash (chief complaint)s tress (chief complaint) No Information Wyatt GOLD [place]. [address] [place] [address] [place], , [id number], [place]. tel:[phone] Family History Family Member Type Diagnosis Age At Onset No Information Payers Payer name Insurance type Covered constitution party ID Authorjay bobo(s) [facility] [id number] Social History Type Description Quantity Date Captured Comments Alcohol Use Details Unknown Caffeine Use Details Unknown Tobacco Use Status No Information Smoking Status No Information Sex Male Vital Signs Date / Time: Height Weight BMI Pulse Rate Blood Pressure Temperature Respiratory Rate Body Surface Area Head Circumference Head Circ. Percentile Wt./Jayson. Percentile BMI percentile Pulse Ox Inhaled Ox 9:03 AM 69.00 in 95.240 kg (210.00 lbs) 31.0 0 kg/m eter (2) 72 /min 130/82 mm[Hg] 98.20 F 16 /min Chief Complaint And Reason For Visit From encounter dated '03/30/2004 09:20'. rash (chief complaint). Description: pt has started to break out with a rash that is itchy and increases itching with exposure to water stress (chief complaint). 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
--- NOTE | ~2025-04-28 | CT_ITS ---
CT lung screening INDICATION: Tobacco use. COMPARISON: 05/01/2024. TECHNIQUE: CT examination of the entire thorax without contrast was performed using low dose technique. Thin section axial, sagittal and coronal images were included to increase sensitivity for small lung nodules. FINDINGS: PULMONARY NODULES: 2 4 x 1.7 cm solid nodule within the right lung apex is stable. No new suspicious noncalcified pulmonary nodules seen. OTHER PULMONARY FINDINGS: No significant nonnodular pleural or parenchymal abnormality is noted. Mild emphysematous changes are present. No pathologically enlarged lymph nodes are present. Normal heart size. UPPER ABDOMEN AND PERIPHERAL SOFT TISSUE: Limited views of the upper abdomen and peripheral soft tissue demonstrated no abnormalities. OSSEOUS STRUCTURES: Bone window shows no aggressive blastic or lytic lesions. IMPRESSION: 1. Lung-RADS category 2: Nodules with a very low likelihood of becoming a clinically active cancer due to size or lack of growth. Recommendations: 1 or 2: Annual screening with low-dose CT in 12 months. 2. Mild emphysematous changes are present. All CT scans at this facility are performed using low dose modulation techniques as appropriate to perform exam including the following: automated exposure control; use of iterative reconstruction technique; adjustment of the mA and/or kV according to patient size (this includes techniques or standardized protocols for targeted exams where dose is matched to indication/reason for exam). Reviewed, dictated and finalized at location S. IMPRESSION: 1. Lung-RADS category 2: Nodules with a very low likelihood of becoming a clini mark active cancer due to size or lack of growth. Recommendations: 1 or 2: Annual screening with low-dose CT in 12 months. 2. Mild emphysematous changes are present. All CT scans at this facility are performed using low dose modulation techniqu es as appropriate to perform exam including the following: automated exposure c ontrol; use of iterative reconstruction technique; adjustment of the mA and/or kV according to patient size (this includes techniques or standardized protocol s for targeted exams where dose is matched to indication/reason for exam).
--- OUTSIDE RECORDS SUMMARY | 2025-04-28 19:55 | XMS_ITS | Encounter Summary ---
Author Organization [facility] Healthcare Address [address] [place] [address] Care Team Providers Care Rip And Groove Machine Operator Name Role Phone Avery Almazan MD Primary Care Provider Alicia Christian RN Unavailable [phone] Miscellaneous, Not In File Unavailable Unava ilable Encounter Details Date Type Department Care Team (Late st Contact Info) Description 08/16/2017 Orders Only [facility] Health Information Management [address] [place] [id number] Scanning, Provider Social History Tobacco Use Types Packs/Day Years Used Date Smoking Tobacco: Never Assessed Sex and Gender Information Value Date Recorded Sex Assigned at Not on file Legal Sex Male 8:19 AM COMMISSIONED POLICE OFFICER Gender Identity Not on file Sexual Orientation Not on file documented as of this encounter Plan of Treatment Not on file documented as of this encounter Procedures Procedure Name Priority Date/Time Associated Diagnosis Comments SCAN - LABS 08/16/2017 documented in this encounter Results * SCAN - LABS (08/16/2017) us Provider Scanning Final Result documented in this encounter Visit Diagnoses Not on filedocumented in this encounter Care Teams Rip And Groove Machine Operator Relationship Specialty Start Date End Date Avery Almazan MD [address] [place] [address] PCP - General Family Medicine 09/06/17 Alicia Christian, RN [address] [facility] [address] [place] [address] SHOP Outpatient Steam Cleaning Machine Operator 03/17/20 03/24/20 Miscellaneous, Not In File 03/17/20 documented as of this encounter
--- OUTSIDE RECORDS SUMMARY | 2025-04-28 19:55 | XMS_ITS | Clinical Summary ---
Author Organization [facility] al Address [address] [place] [address] Care Team Providers Care Shank Scourer Name Role Phone Avrey Almazan MD Primary Care Provider Miscellaneous, Not [...] 07/23/2024 Assessment & Plan (07/23/2024 3:45 PM ART DEPARTMENT HEAD): Subclavian artery occlusion. Overall asymptomatic. Continue risk factor modification with ASA statin therapy. Would only recommend intervention if his left upper extremity becomes symptomatic. Mesenteric artery stenosis 07/23/2024 Assessment & Plan (07/23/2024 3:46 PM ART DEPARTMENT HEAD): Asymptomatic celiac and SMA stenosis. ASA statin therapy as above. Peripheral vascular disease, unspecified Assessment & Plan (05/28/2024 2:14 PM ART DEPARTMENT HEAD): Follow-up with bilateral upper and lower extremity arterial Doppler for further evaluation of patient's previous left subclavian artery occlusion as well as lower extremity non limiting claudication Urethral stricture 04/28/2020 Overview (04/28/2020): Added automatically from request for surgery [id number] Cauda equina syndrome 03/15/2020 Overview (03/15/2020): Added automatically from request for surgery [id number] Coronary artery disease invo lving [place] coronary artery of [place] heart without angina pectoris 09/13/2017 PAF (paroxysmal atrial fibrillation) 09/13/2017 Essential hypertension 09/13/2017 Hyperlipidemia LDL goal <70 09/13/2017 Assessment & Plan (07/23/2024 3:45 PM ART DEPARTMENT HEAD): Stable continue Lipitor Hyperlipidemia associated with type 2 diabetes m ellitus 09/13/2017 Hypertension associated with diabetes 09/13/2017 IDDM (insulin dependent diabetes mellitus) 09/13 Pacemaker 09/13/2017 Overview (06/22/2024): Medtronic Velia Dual Pacemaker. Dx; SSS, PAF. DOI 06/10/2024- Evette. Chronic leads 2012. [employer] remote. Chronic obstructive pulmonary disease 09/13/2017 Tobacco abuse 09/13/2017 Left arm pain 09/13/2017 Surgical History Surgery Date Site/Laterality Comments CHOLECYSTECTOMY POSTERIOR LAMINECTOMY / DECOMPRESSION LUMBAR SPINE 03/08/2020 - 04/06/2020 INSERT / REPLACE / REMOVE PACEMAKER pacemaker~ placed 2006 per pt SUPRAPUBIC CATHETER INSERTION 03/08/2020 - 04/06/2020 Medical History Medical History Date Comments Hypertension Diabetes mellitus Anxiety and depression Sleep apnea COPD (chronic obstructive pulmonary disease) Coronary artery disease Hyperlipidemia Hypertensive heart disease Old [place] (myocardial infarction) Vitamin D deficiency Pacemaker Family [...] on file Legal Sex Male 8:19 AM ART DEPARTMENT HEAD Gender Identity Not on file Sexual Orientation Not on file Obstetrics History Last Filed Vital Signs Vital Sign Reading Time Taken Comments Blood Pressure 81/55 07/22/2024 9:57 AM ART DEPARTMENT HEAD Pulse 75 07/22/2024 9:57 AM ART DEPARTMENT HEAD Temperature 36.1 C (97 F) 05/23/2020 10:54 AM ART DEPARTMENT HEAD Respiratory Rate 12 05/23/2020 1:40 PM ART DEPARTMENT HEAD Oxygen Saturation 98% 07/22/2024 9:57 AM ART DEPARTMENT HEAD Inhaled Oxygen Concentration - - Weight 97.1 kg (214 lb) 07/22/2024 9:57 AM ART DEPARTMENT HEAD Height 175.3 cm (5' 9) 07/22/2024 9:57 AM ART DEPARTMENT HEAD Body Mass Index 31.6 07/22/2024 9:57 AM ART DEPARTMENT HEAD Plan of Treatment Health Maintenance Due Date [...] 12/13/2013 Hemoglobin A1C 09/12/2020 03/15/2020 Influenza Vaccine (#1) 2025 Lipid Panel 05/20/2025 05/20/2024, 0902/2020, 09/13/2017 Medical Devices Implanted Type Area Filteration Operator Device Identifier Shelf Expiration Date Model / Serial / Lot Medtronic Ra Lead ([id number])- Implanted: (Quantity not on file) Lead Chest Medtronic Cardiac Rhythm Mgmt [id number] / / Medtronic Rv Lead ([id number])- Implanted: (Quantity not on file) Lead Chest Medtronic Cardiac Rhythm Mgmt [id number] / / Medtronic Pacemaker ([id number])-11/28 Implanted: (Quantity not on file) Pacemaker Left: Chest Medtronic Cardiac Rhythm Mgmt [id number] / / Procedures Procedure Name Priority Date/Time Associated Diagnosis Comments POCT LIPID PANEL Routine 05/20/2024 9:41 AM ART DEPARTMENT HEAD Need for lipid screening HEMOGLOBIN A1C STAT 03/15/2020 8:43 PM CDT from Last 3 Months or Most Recently Relevant to Health Maintenance Results * POCT lipid panel (05/20/2024 9:41 AM ART DEPARTMENT HEAD) Cholesterol, POC 162 mg/dL Comment:GLU = 247 HDL, POC 25 mg/dL Triglycerides, POC 137 mg/dL LDL Cholesterol POC 110 mg/dL Chol/HDL Ratio, POC 4.4 Non-HDL Cholesterol, POC 138 mg/dL Cholesterol Total, POC 162 mg/dL Capillary blood 05/20/2024 9 :41 AM ART DEPARTMENT HEAD us Antonio Alas MD POINT OF CARE TEST ORDER DANIA Final Result * (ABNORMAL) Hemoglobin A1c (03/15/2020 8:43 PM CDT) Hgb A1C 12.8(H) 4.0 - 5.6 % MATTIE TORRES Estimated Average Glucose 321 mg/dL MATTIE [facility] Comment: The ADA recommends reporting an estimated Average Glucose (eAG) with all Hemoglobin A1c results using the equation derived from a study of 507 normal and diabetic adults. Minority populations were underrepresented and children were not included. (Diabetes Care 31:5300-6622, 2008). The eAG is not equivalent to a fasting glucose. Blood specimen (specimen) 03/15/2020 8:43 PM CDT 03/15/2020 9:31 PM CDT us Dony Paul NP LAB BLOOD ORDERABLES Fin al Result [facility] Department [place] [address] from Last 3 Months or Most Recently Relevant to Health Maintenance Insurance [employer] MEDICARE PPO [employer] MEDICARE PPO MEDICARE ADVANTAGE [facility] MED[facility] Address: [address] [address] [place] [address] Advance Directives For more information, please contact: [phone] * Full Code (Latest Code Status on File) Date Activated Date Inactivated Comments 03/15/2020 7:12 PM 03/17/2020 6:09 PM * Full Code Date Activated Date Inactivated Comments 03/15/2020 7:10 PM 03/15/2020 7:12 PM Care Teams Shank Scourer Relationship Specialty Start Date End Date Avery Almazan MD [address] [facility] [address] [place] [address] PCP - General Family Medicine 09/06/17 Miscellaneous, Not In File 03/17/20
== END 2025-04-28 15:40 | disposition home or self-care (01) ==
PROVIDERS: PCP Family Medicine; Visit Provider Physician Assistant
DX: Z12.2 Encounter for screening for malignant neoplasm of respiratory organs (principal); R91.8 Other nonspecific abnormal finding of lung field; J43.9 Emphysema, unspecified; F17.210 Nicotine dependence, cigarettes, uncomplicated
CPT/HCPCS: 71271